=== PATIENT | female | born 1980 | race Caucasian/White ===

== ENCOUNTER 2019-08-30 09:36 | Outpatient (CLI) | payer MEDICAID, SELFPAY ==
--- NOTE | 2019-08-30 10:40 | CT_ITS ---
WS: [id number] CT FACIAL BONES TECHNIQUE: Noncontrast facial bones with coronal and sagittal reformatted images. CLINICAL INFORMATION: TO EVALUATE BROKEN NOSE-EMPHASIS ON LEFT SIDE COMPARISON: None. DLP: 670.[address] scans at [facility] use at least one of these dose optimization techniques: automat ed exposure control; mA and/or kV adjustment per patient size (includes targeted exams where dose is matched to clinical indication); or iterative reconstruction. FINDINGS: Left to right nasal septal deviation measuring 4.5 mm. Mucosal thickening with opacification of the o stiomeatal units. Air-fluid levels in the maxillary sinuses consistent with sinusitis. Partial opacif ication ethmoid air cells with fluid consistent with sinusitis.Frontal sinuses are well aerated. Part ial opacification right greater than left frontoethmoidal recess. Sphenoid sinus well aerated. Mild m ucosal thickening along the sphenoid sinus ostia. Mastoid air cells appear well aerated. Left orbital floor and lamina papyracea appear intact. Prominent cervical lymph nodes in the upper cervical chain likely reactive. CT/CT facial bones wo con* [id number] IMPRESSION: 1. Mild left to right nasal septal deviation measuring 4.5 mm. 2. Air-fluid levels in the maxillary sinuses left greater than right ethmoid a ir cells consistent with sinusitis. Inspissated secretions. 3. Partial opacification ethmoid air cells with fluid. 4. Frontal sinuses are well aerated. Partial opacification right frontoethmoid al recess. 5. Mild mucosal thickening in the sphenoid sinus with narrowing of the left gr eater than right sphenoid sinus ostia. 6. Narrowing of the ostiomeatal units bilaterally with mucosal thickening and partial opacification. 7. Prominent cervical lymph nodes in the upper cervical chains likely reactive .
== END 2019-08-30 09:37 | disposition home or self-care (01) ==
LOC: RAD 09:37
PROVIDERS: Family Provider Nurse Practitioner Family; PCP Nurse Practitioner Family; Visit Provider Internal Medicine
DX: S02.92XA Unspecified fracture of facial bones, initial encounter for closed fracture (principal); X58.XXXA Exposure to other specified factors, initial encounter; J34.2 Deviated nasal septum
CPT/HCPCS: 70486

== ENCOUNTER → 2019-09-20 08:58 | Outpatient (BNVA) | payer MEDICAID, SELFPAY | PROVIDERS: Family Provider Nurse Practitioner Family; PCP Nurse Practitioner Family; Visit Provider Orthopaedic Surgery | DX: M25.521 Pain in right elbow (principal); M25.511 Pain in right shoulder | CPT/HCPCS: 73030; 73080 ==

== ENCOUNTER 2019-11-14 12:00 | Outpatient (CLI) | payer MEDICAID, SELFPAY | END 2019-11-14 12:01 | disposition home or self-care (01) | LOC: SLEEP 11-16 09:39 | PROVIDERS: Family Provider Nurse Practitioner Family; PCP Nurse Practitioner Family; Visit Provider Specialist | DX: G47.33 Obstructive sleep apnea (adult) (pediatric) (principal) | CPT/HCPCS: G0399 ==

== ENCOUNTER → 2019-12-27 08:54 | Outpatient (BNVA) | payer MEDICAID, SELFPAY | PROVIDERS: Family Provider Nurse Practitioner Family; PCP Nurse Practitioner Family; Visit Provider Psychiatry & Neurology Psychiatry | DX: F43.10 Post-traumatic stress disorder, unspecified (principal); F90.2 Attention-deficit hyperactivity disorder, combined type; F10.94 Alcohol use, unspecified with alcohol-induced mood disorder; F39 Unspecified mood [affective] disorder; G47.00 Insomnia, unspecified; F10.982 Alcohol use, unspecified with alcohol-induced sleep disorder; F06.30 Mood disorder due to known physiological condition, unspecified; F06.34 Mood disorder due to known physiological condition with mixed features; F41.9 Anxiety disorder, unspecified; D52.1 Drug-induced folate deficiency anemia; E61.9 Deficiency of nutrient element, unspecified; S46.911A Strain of unspecified muscle, fascia and tendon at shoulder and upper arm level, right arm, initial encounter; F41.1 Generalized anxiety disorder; T42.75XA Adverse effect of unspecified antiepileptic and sedative-hypnotic drugs, initial encounter; F07.81 Postconcussional syndrome | CPT/HCPCS: 99205 ==

== ENCOUNTER 2019-12-28 14:30 | Outpatient (CLI) | payer MEDICAID, SELFPAY ==
[2019-12-28 14:58] LABS: Basophils % 0.3 %; Eosinophils # 0.2 10^3/uL (0.0-0.8); Hematocrit 43.7 % (37.0-47.0); Hemoglobin 14.6 g/dL (11.5-15.3); Lymphocytes # 2.9 10^3/uL (0.8-4.8); Lymphocytes % 24.5 %; Mean Corpuscular HGB Conc 33.4 g/dL (30.0-36.0); Mean Corpuscular Hemoglobin 33.2 pg (28.0-34.0); Mean Corpuscular Volume 99.3 fL (81-99); Mean Platelet Volume 10.7 fL (7.4-10.4); Neutrophils # 7.6 10^3/uL (1.8-7.7); Neutrophils % 64.7 %; Nucleated Red Blood Cells % 0 %; Platelet Count 275 10^3/cmm (130-400); Red Cell Distribution Width 12.8 % (12.1-15.1); White Blood Count 11.8 10^3/uL (4.0-10.0)
[2019-12-28 15:30] LABS: Alanine Aminotransferase 21 U/L (0-33); Albumin Level 4.3 g/dL (3.5-5.2); Alkaline Phosphatase 78 IU/L (35-105); Anion Gap 14.5 (5-19); Aspartate Amino Transferase 24 U/L (0-32); Blood Urea Nitrogen 21 mg/dL (6-20); Calcium 9.6 mg/dL (8.5-10.5); Carbon Dioxide 32 mmol/L (22-29); Chloride 95 mmol/L (98-107); Chol HDL Ratio 3.57 mg/dL (0.0-4.40); Cholesterol 193 mg/dL (0-200); Free T4 Free Thyroxine 1.16 ng/dL (0.82-1.77); Globulin 2.8 g/dL (1.3-4.6); Glucose 95 mg/dL (65-115); HDL Cholesterol 54 mg/dL (60-100); Magnesium 1.9 mg/dL (1.7-2.3); Osmolality Calculated 282 mOsm/kg (285-295); Potassium 3.5 mmol/L (3.5-5.1); Sodium 138 mmol/L (136-145); T3 Free 2.8 PG/ML (2.0-4.4); Thyroid Stimulating Hormone 1.13 uIU/mL (0.27-4.20); Total Bilirubin 0.3 mg/dL (0.15-1.2); Total Protein 7.1 g/dL (6.6-8.7); Triglycerides 413 mg/dL (0-150)
[2019-12-28 16:12] LABS: 25 Hydroxy Vitamin D 33 ng/mL (30-100); LDL Cholesterol Direct 111 mg/dL (0-100); Vitamin B12 288 pg/mL (232-1245)
[2019-12-28 16:22] LABS: HCG, Serum Qual Negative (Negative)
[2019-12-28 16:36] LABS: Folate Level 7.3 ng/mL (4.8-37.3)
[2019-12-29 08:16] LABS: T3 Total 92 ng/dL (76-181)
[2019-12-31 20:52] LABS: Copper Level 102 mcg/dL (70-175); Zinc Level, Serum or Plasma 65 mcg/dL (60-130)
== END 2019-12-28 14:31 | disposition home or self-care (01) ==
LOC: LAB 14:33
PROVIDERS: Family Provider Nurse Practitioner Family; PCP Nurse Practitioner Family; Visit Provider Psychiatry & Neurology Psychiatry
DX: F10.94 Alcohol use, unspecified with alcohol-induced mood disorder (principal); F39 Unspecified mood [affective] disorder; G47.00 Insomnia, unspecified; F10.982 Alcohol use, unspecified with alcohol-induced sleep disorder; F06.30 Mood disorder due to known physiological condition, unspecified; F06.34 Mood disorder due to known physiological condition with mixed features; F41.9 Anxiety disorder, unspecified; D52.1 Drug-induced folate deficiency anemia; E61.9 Deficiency of nutrient element, unspecified
CPT/HCPCS: 80053; 80061; 82306; 82525; 82607; 82746; 83721; 83735; 84439; 84443; 84480; 84481; 84630; 84703; 85025

== ENCOUNTER → 2020-01-23 07:56 | Outpatient (BNVA) | payer MEDICAID, SELFPAY | PROVIDERS: Family Provider Nurse Practitioner Family; PCP Nurse Practitioner Family; Visit Provider Psychiatry & Neurology Psychiatry | DX: F41.1 Generalized anxiety disorder (principal); F07.81 Postconcussional syndrome; F06.34 Mood disorder due to known physiological condition with mixed features; S46.911A Strain of unspecified muscle, fascia and tendon at shoulder and upper arm level, right arm, initial encounter | CPT/HCPCS: 99215 ==

== ENCOUNTER → 2020-03-23 10:05 | Outpatient (BNVA) | payer MEDICAID, SELFPAY | PROVIDERS: Family Provider Nurse Practitioner Family; PCP Nurse Practitioner Family; Visit Provider Nurse Practitioner Women's Health | DX: Z31.9 Encounter for procreative management, unspecified (principal); N93.9 Abnormal uterine and vaginal bleeding, unspecified | CPT/HCPCS: 84439; 84443; 84702; 85025 ==

== ENCOUNTER → 2020-03-30 16:10 | Outpatient (BNVA) | payer MEDICAID, SELFPAY | PROVIDERS: Family Provider Nurse Practitioner Family; PCP Nurse Practitioner Family; Visit Provider Nurse Practitioner Women's Health | DX: N93.9 Abnormal uterine and vaginal bleeding, unspecified (principal) | CPT/HCPCS: 76830 ==

== ENCOUNTER → 2020-04-04 11:08 | Outpatient (BNVA) | payer MEDICAID, SELFPAY | PROVIDERS: Family Provider Nurse Practitioner Family; PCP Nurse Practitioner Family; Visit Provider Nurse Practitioner Family | DX: J01.40 Acute pansinusitis, unspecified (principal); N39.0 Urinary tract infection, site not specified; B37.3 Candidiasis of vulva and vagina | CPT/HCPCS: 81000; 87086 ==

== ENCOUNTER → 2020-07-31 10:22 | Outpatient (BNVA) | payer MEDICAID, SELFPAY | PROVIDERS: Family Provider Nurse Practitioner Family; PCP Nurse Practitioner Family; Visit Provider Family Medicine Adult Medicine | DX: I10 Essential (primary) hypertension (principal); R94.4 Abnormal results of kidney function studies | CPT/HCPCS: 80053; 80061 ==

== ENCOUNTER → 2020-08-31 15:38 | Outpatient (BNVA) | payer BC, MEDICAID, SELFPAY | PROVIDERS: Family Provider Nurse Practitioner Family; PCP Nurse Practitioner Family; Visit Provider Nurse Practitioner Family | DX: Z20.828 Contact with and (suspected) exposure to other viral communicable diseases (principal) | CPT/HCPCS: 87635 ==

== ENCOUNTER → 2020-09-04 09:46 | Outpatient (BNVA) | payer BC, MEDICAID, SELFPAY | PROVIDERS: Family Provider Nurse Practitioner Family; PCP Nurse Practitioner Family; Visit Provider Nurse Practitioner Family | DX: Z20.828 Contact with and (suspected) exposure to other viral communicable diseases (principal); J06.9 Acute upper respiratory infection, unspecified | CPT/HCPCS: 87635 ==

== ENCOUNTER → 2020-09-13 10:00 | Outpatient (BNVA) | payer BC, SELFPAY | PROVIDERS: Family Provider Nurse Practitioner Family; PCP Nurse Practitioner Family; Visit Provider Nurse Practitioner Psychiatric/Mental Health | DX: F90.2 Attention-deficit hyperactivity disorder, combined type (principal); F43.12 Post-traumatic stress disorder, chronic; F31.9 Bipolar disorder, unspecified | CPT/HCPCS: 99214 ==

== ENCOUNTER → 2020-10-18 07:32 | Outpatient (BNVA) | payer BC, SELFPAY | PROVIDERS: Family Provider Nurse Practitioner Family; PCP Nurse Practitioner Family; Visit Provider Nurse Practitioner Psychiatric/Mental Health | DX: F90.2 Attention-deficit hyperactivity disorder, combined type (principal); F43.12 Post-traumatic stress disorder, chronic; F31.9 Bipolar disorder, unspecified | CPT/HCPCS: 99214 ==

== ENCOUNTER → 2021-01-30 07:58 | Outpatient (BNVA) | payer BC, MEDICAID, SELFPAY | PROVIDERS: Family Provider Nurse Practitioner Family; PCP Family Medicine Adult Medicine; Visit Provider Social Worker | DX: F43.12 Post-traumatic stress disorder, chronic (principal); F90.2 Attention-deficit hyperactivity disorder, combined type | CPT/HCPCS: 90834 ==

== ENCOUNTER → 2021-02-04 10:27 | Outpatient (BNVA) | payer BC, MEDICAID, SELFPAY | PROVIDERS: Family Provider Nurse Practitioner Family; PCP Family Medicine Adult Medicine; Visit Provider Family Medicine Adult Medicine | DX: Z00.00 Encounter for general adult medical examination without abnormal findings (principal); I10 Essential (primary) hypertension; M19.90 Unspecified osteoarthritis, unspecified site; M79.7 Fibromyalgia; S89.90XA Unspecified injury of unspecified lower leg, initial encounter | CPT/HCPCS: 80053; 83036; 84443; 85025; 86140; 86431 ==

== ENCOUNTER → 2021-02-14 16:30 | Outpatient (BNVA) | payer BC, SELFPAY | PROVIDERS: Family Provider Nurse Practitioner Family; PCP Family Medicine Adult Medicine; Visit Provider Nurse Practitioner Family | DX: Z20.822 Contact with and (suspected) exposure to COVID-19 (principal) | CPT/HCPCS: 87635 ==

== ENCOUNTER → 2021-02-14 16:30 | Outpatient (BNVA) | payer BC, SELFPAY | PROVIDERS: Family Provider Nurse Practitioner Family; PCP Family Medicine Adult Medicine; Visit Provider Nurse Practitioner Family | DX: Z01.89 Encounter for other specified special examinations (principal) | CPT/HCPCS: 87635 ==

== ENCOUNTER 2021-02-18 01:04 | Inpatient (IN) | payer BC, SELFPAY ==
[2021-02-18] VITALS (18 sets, daily range): BP systolic 83–124; BP diastolic 47–80; PULSE 85–124; RESP 16–24; TEMP 36.7–39.5; O2SAT 84–99; BMI 29.2
--- NOTE | 2021-02-18 02:08 | XRR_ITS ---
PROCEDURE INFORMATION: Exam: XR Chest Exam date and time: 02/18/2021 2:08 AM Age: 40 years old Clinical indication: Fever; Prior surgery; Surgery date: 6+ months; Surgery type: Appy, gb TECHNIQUE: Imaging protocol: XR of the chest. Views: 1 view. COMPARISON: CR XR shoulder RT min 2V* [id number] 09/20/2019 9:02 AM FINDINGS: Lungs: Unremarkable. No consolidation. Pleural spaces: Unremarkable. No pleural effusion. No pneumothorax. Heart/Mediastinum: Unremarkable. No cardiomegaly. Bones/joints: Unremarkable. XR/XR chest 1V portable [id number] IMPRESSION: No acute findings.
[2021-02-18] MEDS: ketorolac 30 mg/mL INJ 15 MG IVP (02:41)
[2021-02-18] MEDS: sodium chloride 0.9% 1,000 ML 999 ML IV ×2 (02:42→05:28)
[2021-02-18] MEDS: doxycycline 100 MG in sodium chloride 0.9% (plus) 100 ML IV (02:51)
[2021-02-18 03:04] LABS: Hematocrit 39.8 % (37.0-47.0); Hemoglobin 13.2 g/dL (11.5-15.3); Mean Corpuscular HGB Conc 33.2 g/dL (30.0-36.0); Mean Corpuscular Hemoglobin 33.8 pg (28.0-34.0); Mean Corpuscular Volume 101.8 fL (81-99); Platelet Count 64 10^3/cmm (130-400); Red Blood Count 3.91 10^6/uL (4.1-5.3); Red Cell Distribution Width 13.2 % (12.1-15.1); White Blood Count 3.1 10^3/uL (4.0-10.0)
--- NOTE | 2021-02-18 03:10 | CTR_ITS ---
PROCEDURE INFORMATION: Exam: CTA Chest With Contrast Exam date and time: 02/18/2021 3:10 AM Age: 40 years old Clinical indication: Dyspnea; Additional info: Cp SOB TECHNIQUE: Imaging protocol: Computed tomographic angiography of the chest with contrast. 3D rendering (Not supervised by radiologist): MIP and/or 3D reconstructed images were created by the technologist. Radiation optimization: All CT scans at this facility use at least one of these dose optimization techniques: automated exposure control; mA and/or kV adjustment per patient size (includes targeted exams where dose is matched to clinical indication); or iterative reconstruction. Contrast material: OMNI 350; Contrast volume: 95 ml; Contrast route: INTRAVENOUS (IV); COMPARISON: CR (CHEST, ) 02/18/2021 2:47 AM RADIATION DOSE METRICS: Total DLP (mGy-cm): 620.24 FINDINGS: Pulmonary arteries: Normal. No pulmonary emboli. Aorta: Unremarkable. No aortic aneurysm. No aortic dissection. Lungs: There is ground-glass opacities scattered throughout both lungs in a predominantly peripheral distribution. Pleural spaces: Unremarkable. No pneumothorax. No pleural effusion. Heart: Unremarkable. No cardiomegaly. No pericardial effusion. Mediastinal space: A small hiatal hernia is present. Lymph nodes: Unremarkable. No enlarged lymph nodes. Liver: The liver is diffusely decreased in density, compatible with hepatic steatosis. No mass lesion seen. Bones/joints: Unremarkable. No acute fracture. Soft tissues: Unremarkable. CT/CT angio chest PE protcl [id number] IMPRESSION: Commonly reported imaging features of (COVID-19) pneumonia are present. Other processes such as influenza pneumonia and organizing pneumonia, as can be seen with drug toxicity and connective tissue disease, can cause a similar imaging pattern. Radiation Dose CTDIVOL = (mGy): DLP = 620.24 (mGy-cm)
[2021-02-18 03:26] LABS: Lactate (Lactic Acid level) 3.1 mmol/L (0.5-2.2)
[2021-02-18 03:27] LABS: Alanine Aminotransferase 75 U/L (0-33); Albumin Level 3.3 g/dL (3.5-5.2); Alkaline Phosphatase 146 IU/L (35-105); Anion Gap 14.4 (5-19); Aspartate Amino Transferase 151 U/L (0-32); Blood Urea Nitrogen 15 mg/dL (6-20); C Reactive Protein 82.6 mg/L (0.0-4.9); Calcium 7.9 mg/dL (8.5-10.5); Carbon Dioxide 28 mmol/L (22-29); Chloride 93 mmol/L (98-107); Creatine Phosphokinase 128 U/L (26-192); Globulin 2.2 g/dL (1.3-4.6); Glomerular Filtration Rate 79.4 mL/min (90-130); Glucose 98 mg/dL (65-115); Osmolality Calculated 275 mOsm/kg (285-295); Potassium 3.4 mmol/L (3.5-5.1); Sodium 132 mmol/L (136-145); Total Bilirubin 0.6 mg/dL (0.15-1.2); Total Protein 5.5 g/dL (6.6-8.7)
[2021-02-18 03:33] LABS: Procalcitonin 0.54 ng/mL (0-0.5)
[2021-02-18 03:54] LABS: Add Urine Microscopic? YES; Bilirubin Urine 1+ (Negative); Blood Urine 3+ (Negative); Glucose Urine UA Norm (Normal); Ketones Urine Negative (Negative); Leukocyte Esterase Urine Negative (Negative); Nitrate Urine Negative (Negative); Protein Urine Trace (Negative); Urine Appearance Clear (CLEAR); Urine Color Yellow (Yellow); Urobilinogen Urine 4 mg/dL (Negative); pH Urine 5 (5-7)
[2021-02-18 03:55] LABS: Add Urine Culture? No; Bacteria Urine TRACE /hpf; Mucus Urine 2+ /hpf; WBC Urine 0-4 /hpf (0-5)
[2021-02-18] MEDS: acetaminophen 500 mg Tablet 1000 MG PO (03:57)
[2021-02-18 04:01] LABS: Slide Review Slide Review Perform
[2021-02-18 04:09] LABS: Absolute Segmented Neutrophil 1.6 10/cmm (1.6-7.1); Eosinophils 0 %; Lymphocytes 11 %; Lymphocytes Absolute 0.3 10^3/cmm (1.2-3.4); Monocytes Absolute 0.1 10^3/cmm (0.1-0.6); Segmented Neutrophils 52 %; Total Cells Counted 100 (0-100)
[2021-02-18 04:10] LABS: Absolute Neutrophil 2.6 10^3/cmm (1.4-6.5); Giant Platelets Trace; Platelet Estimate Decreased (Normal)
[2021-02-18 04:11] LABS: Polychromasia 1+
[2021-02-18] MEDS: iohexol 350 mg/mL 100 mL Btl IV (04:20)
[2021-02-18 05:54] LABS: SARS Covid-2 Antigen Negative (Negative)
[2021-02-18 05:54] LABS: Influenza A by IFA Negative (Negative); Influenza B by IFA Negative (Negative)
--- NOTE | 2021-02-18 06:02 | PM.HP ---
Providers/Chief Complaint Primary Care Provider: Du Coffey MD Chief Complaint: High Fever History of Present Illness Ana Maria Archer is a 40 year old female who presented today with chief complaint of fever, cough, joint pain and headaches. 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 She has removed 4-5 ticks in last 1 week her symptoms started on . She also noticed a bull's-eye rash on right flank. At home she was spiking temperature 103-104F, she was seen at [facility] ER where she was given Levaquin for possible bronchitis and was discharged home. At home her cough got better but she was still spiking high-grade temperature. Her fever is associated with headache, macular rash on her back, and joint pains. She is denying excessive coughing, productive cough, diarrhea, dysuria. Diagnostics in the ER revealed leukopenia, thrombocytopenia, abnormal transaminases, high lactic acid, patient is septic, Covid antigen negative, tick panel sent, UA unremarkable, high procalcitonin level, high CRP, CTA rule out PE however consistent with groundglass opacities she was given ketorolac 50 mg IV push along 2 L normal saline and doxycycline and 1 g of Tylenol Review of Systems Const: Reports: fever(s), chills, body aches, change in appetite, fatigue and malaise Eyes: Denies: change in vision ENMT: Denies: throat pain Card: Denies: chest pain Resp: Reports: dyspnea and non-productive cough GI: Denies: abdominal pain : Denies: flank pain Musc: Reports: joint pain Skin/Breast: Reports: erythema and new lesions Neuro: Reports: headache(s) Psych: Reports: anxiety Endo: Denies: polyuria Max/Lymph: Reports: easy bruising All/Imm: Denies: urticaria Medications/Allergies Home Medications Medication Instructions Recorded Confirmed Last Taken Type gabapentin 100 mg capsule 200 mg PO TID #90 cap 01/23/20 02/14/21 Unknown Rx clonidine HCl 0.1 mg tablet 0.1 mg PO BID PRN #60 tab 10/18/20 02/14/21 Unknown Rx sertraline 50 mg tablet 50 mg PO DAILY #30 tab 12/07/20 02/14/21 Unknown Rx meloxicam 7.5 mg tablet 7.5 mg PO BIDWMEAL #60 tab 02/04/21 02/14/21 Unknown Rx Allergies Allergy/AdvReac Type Severity Reaction Status Date / Time No Known Allergies Allergy Verified 02/18/21 01:40 PFSH Acute PFSH: Medical History Abnormal uterine bleeding (AUB) Acquired scoliosis Allergic rhinitis due to allergen Arthritis Bipolar affect, depressed Bipolar mood disorder Chronic post-traumatic stress disorder (PTSD) Decreased calculated GFR Fibromyalgia affecting multiple sites Hypertension Insomnia No pertinent past medical history neghx: htn,dm,thyroid,dvt/pe Toe fracture, left Wellness examination Surgical History H/O section H/O laparoscopy x4 for endometriosis-- last 12/2018 no endometriosis was noted; [facility] in [place] H/O LEEP (~2002) severe dysplasia History of appendectomy History of cholecystectomy History of cryosurgery on the cervix due to abnormal paps History of thoracic surgery chest tumor-- benign Family History Grandmother Family history of thyroid problem Maternal grandmother Hypertension Paternal grandmother Maternal grandmother Grandfather Hypertension Paternal grandfather Maternal grandfather Father Hypertension Hyperlipidemia Mother Hypertension Hyperlipidemia Denies family history of Colon cancer Ovarian cancer Diabetes Heart disease Breast cancer Uterine cancer Stroke Social History Additional social history: - Tobacco use: Everyday smoker; 6cigs daily Alcohol use: Social Drug use: Denies Female Reproductive History: Date of last menstrual period: 02/14/21 Vitals/I&O/Wt Last Vital Signs Temp 100.1 F H 02/18/21 05:22 Pulse 109 H 02/18/21 05:59 Resp 22 H 02/18/21 05:59 BP 112/63 02/18/21 05:59 Pulse Ox 96 02/18/21 05:59 02/17/21 02/17/21 02/18/21 14:59 22:59 06:59 Intake Total 1100 / 1100 Balance 1100 / 1100 Weight last 48 hrs Weight 72.484 kg Physical Exam Narrative: EXAM NARRATIVE: Young female No acute respiratory distress or chest pain Sunburned skin S1, S2 sinus tachycardia Clinically looks dehydrated with facial flushing Macular rash noted at her back with erythema migrans around right flank No signs of meningitis Soft abdomen no signs of peritonitis Lower extremity no edema No neurological deficits GCS 15 awake alert oriented x3 Data : 02/18/21 02:40 02/18/21 02:40 Micro: Microbiology 02/18/21 02:30 Blood Culture - Preliminary Blood SPECIMEN COLLECTED 02/18/21 02:40 Blood Culture - Preliminary Blood SPECIMEN COLLECTED A&P Assessment and plan (1) Tick fever: Status: Acute (2) Sepsis: Status: Acute Additional A&P Information Sepsis Suspicion for erythema migrans around right flank area, multiple ticks were removed in last 1 week, 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 twice daily along ceftriaxone 2 g, most likely she will need 3 weeks regimen of doxycycline Patient does look dehydrated has high lactic acid, anticipating provement with fluids resuscitation received 2 L normal saline bolus, she was hypotensive on arrival as well, no signs of meningitis, CTA rule out PE, chest imaging consistent with bronchitis Tick panel sent Her abnormal transaminases inflammatory markers are most likely related to tick fever Cardiac diet DVT prophylaxis SCDs avoid anticoagulating agent Full code Attestations Medical Necessity Statement*: Anticipating stay in the hospital because more than 2 midnights for sepsis, tick fever Time Spent in Patient Care: 30mins Coding Level of Care Code 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
[2021-02-18] MEDS: sodium chloride 0.9% 1,000 ML 75 ML IV (08:15)
[2021-02-18] MEDS: doxycycline 100 mg Tablet PO ×2 (08:18→17:10)
[2021-02-18] MEDS: sertraline 50 mg Tablet PO (08:18)
[2021-02-18] MEDS: cefTRIAXone 2,000 MG in sodium chloride 0.9% (plus) 50 ML 100 MG IV (08:19)
[2021-02-18] MEDS: famotidine 20 mg/2 mL INJ IVP ×2 (08:19→22:41)
[2021-02-18 08:50] LABS: D Dimer 7.31 ug/mIFEU (0-0.59)
--- NOTE | 2021-02-18 08:55 | ED_ITS ---
HPI - Fever General: Chief Complaint: Fever Stated Complaint: High Fever Time Seen by Provider: 02/18/21 01:53 History of Present Illness: HPI Narrative: 40-year-old female with several days of fever. She states she has been seen twice. She has been tested for COVID-19 twice she has had the vaccine, the last one in December. She developed fever a few days ago that was significant. She was seen and tested, she tested negative and was allowed home. She was seen in [facility] in the ER, tested negative again, told she had a negative chest x-ray, and sent home on antibiotics for bronchitis. Despite this, her temperature continues to be quite high. This evening she had a temperature of 105 at home. 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 At one point she states that her cough was significant, but it is decreased now, nearly resolved. elicited complaint: fever and malaise Onset (ago): day(s) Measured temperature: 105 F Context: recent antibiotic use Exacerbating factors: exertion Relieving factors: nothing Associated symptoms: Reports chills, chest pain, cough, headache(s), nasal congestion (resolved), nausea and sore throat; Deny abdominal pain, diarrhea or short of breath Review of Systems Const: Reports: fever(s), chills, body aches and fatigue Eyes: Denies: change in vision ENMT: Reports: nasal congestion (resolved) Card: Reports: chest pain Resp: Reports: non-productive cough; Denies: dyspnea or productive cough GI: Reports: nausea; Denies: abdominal pain or diarrhea Neuro: Reports: headache(s) PFS ED PFSH: Medical History Abnormal uterine bleeding (AUB) Acquired scoliosis Allergic rhinitis due to allergen Arthritis Bipolar affect, depressed Bipolar mood disorder Chronic post-traumatic stress disorder (PTSD) Decreased calculated GFR Fibromyalgia affecting multiple sites Hypertension Insomnia No pertinent past medical history neghx: htn,dm,thyroid,dvt/pe Toe fracture, left Wellness examination Surgical History H/O section H/O laparoscopy x4 for endometriosis-- last 12/2018 no endometriosis was noted; [facility] in [place] H/O LEEP (~2002) severe dysplasia History of appendectomy History of cholecystectomy History of cryosurgery on the cervix due to abnormal paps History of thoracic surgery chest tumor-- benign Family History Grandmother Family history of thyroid problem Maternal grandmother Hypertension Paternal grandmother Maternal grandmother Grandfather Hypertension Paternal grandfather Maternal grandfather Father Hypertension Hyperlipidemia Mother Hypertension Hyperlipidemia Denies family history of Colon cancer Ovarian cancer Diabetes Heart disease Breast cancer Uterine cancer Stroke Social History Additional social history: - Tobacco use: Everyday smoker; 6cigs daily Alcohol use: Social Drug use: Denies Female Reproductive History: Date of last menstrual period: 02/14/21 Physical Exam Const: GENERAL APPEARANCE: well developed ORIENTATION/CONSCIOUSNESS: Yes oriented to person, Yes oriented to place and Yes oriented to time HENMT: COMMON NORMALS: normocephalic, external ears normal and Normal external nose present HEAD & SCALP: normocephalic; no scalp tenderness FACE & SINUS: normal facial exam NOSE: Normal external nose present and No nasal discharge present EXTERNAL EAR: Yes external ears normal MOUTH: tongue normal TEETH & GINGIVA: no abnormal tooth and associated gingiva THROAT: posterior oropharynx normal; no peritonsillar mass Eye: COMMON NORMALS: Equal, round and reactive pupils present, EOMs intact bilaterally and conjunctivae normal EYELID: eyelids normal CONJUNCTIVA: Yes conjunctivae normal PUPIL: Yes Equal, round and reactive pupils present Neck/C-Spine: COMMON NORMALS: full ROM GENERAL: No tracheal deviation CERVICAL SPINE: Yes normal cervical lordosis and No Cervical spine tenderness Chest: COMMONS NORMALS: normal inspection of the chest CHEST: No tenderness Resp: COMMON NORMALS: clear to auscultation bilaterally EFFORT & INS PECTION: No tachypneic, No respiratory distress, No retractions, No uses accessory muscles and No tracheal deviation AUSCULTATION: clear to auscultation bilaterally, no rhonchi, no wheezes and lung sounds not diminished Cardio: COMMON NORMALS: regular rate and regular rhythm RATE: regular rate RHYTHM: regular rhythm HEART SOUNDS: no murmurs PERIPHERAL PULSES: radial pulses present GI: INSPECTION: No abdominal distension AUSCULTATION: No Hyperactive bowel sounds present and No Hypoactive bowel sounds present PALPATION: No Guarding due to palpation present (GI) and No Rigid due to palpation PERCUSSION: no dullness to percussion and no tympanic to percussion : COMMON NORMALS: Yes no CVA tenderness BLADDER/KIDNEY EXAM: Yes no CVA tenderness Back/Pelvis: COMMON NORMALS: no CVA tenderness Neuro: SENSORIUM/ORIENTATION: Yes oriented to person, Yes oriented to place and Yes oriented to time Psych: COMMON NORMALS: mental status grossly normal Skin: COMMON NORMALS: no rashes or lesions noted GENERAL SKIN EXAM: no rashes or lesions noted Course Vital Signs: Vital signs: Vital Signs Temperature 99.4 F 02/18/21 08:00 Pulse Rate 112 H 02/18/21 08:00 Respiratory Rate 18 02/18/21 08:00 Blood Pressure 83/47 02/18/21 08:00 Pulse Oximetry 92 02/18/21 08:00 MDM - Fever MDM Narrative: Medical decision making narrative: 40-year-old female with significant fever. Her oxygen saturations on room air have been marginal, 90%. She is significantly tachycardic, and a bit hypotensive. She is white blood cell count of 3.1, she is thrombocytopenic with a platelet count of 64. He was 221 last week. Potassium is mildly low. Inflammatory markers are up. Chest x- ray was negative, however because of hypoxia and tachycardia CTA was performed. It shows bilateral pneumonitis suggestive of viral infection like COVID-19 or influenza, but these rapid antigen tests are again negative. Blood cultures are pending. I suspect take fever. She has been given IV doxycycline in the ER. She will be admitted. Lab Data: Labs: Lab Results 02/18/21 02/18/21 02/18/21 Range/Units 02:40 02:40 02:40 WBC 3.1 L (4.0-10.0) 10^3/ uL RBC 3.91 L (4.1-5.3) 10^6/u L Hgb 13.2 (11.5-15.3) g/dL Hct 39.8 (37.0-47.0) % MCV 101.8 H (81-99) fL MCH 33.8 (28.0-34.0) pg MCHC 33.2 (30.0-36.0) g/dL RDW 13.2 (12.1-15.1) % Plt Count 64 L (130-400) 10^3/c mm MPV 12.0 H (7.4-10.4) fL Lymph % (Auto) Not Reportable Baca % (Auto) Not Reportable Lymph # (Auto) Not Reportable Baca # (Auto) Not Reportable Total Counted 100 (0-100) Atypical Lymphs % 0.0 (0-5) % Absolute Neutrophi ls 2.6 (1.4-6.5) 10^3/c mm Segmented Neutroph ils 52 % Abs Segm Neuts (Ma n) 1.6 (1.6-7.1) 10/cmm Band Neutrophils 32.0 % Abs Band Neuts (Ma n) 1.0 (0.0-1.2) 10^3/c mm Absolute Lymphocyt es 0.3 L (1.2-3.4) 10^3/c mm Lymphocytes (Manua l) 11 % Monocytes (Manual) 2.0 % Absolute Monocytes 0.1 (0.1-0.6) 10^3/c mm Eosinophils (Manua l) 0 % Absolute Eosinophi ls 0.0 (0.0-0.7) 10^3/c mm Basophils (Manual) 0.0 % Absolute Basophils 0.0 (0.0-0.2) 10^3/c mm Metamyelocytes 3.0 % Platelet Estimate Decreased L (Normal) Giant Platelets Trace Polychromasia 1+ H Sodium 132 L (136-145) mmol/L Potassium 3.4 L (3.5-5.1) mmol/L Chloride 93 L (98-107) mmol/L Carbon Dioxide 28 (22-29) mmol/L Anion Gap 14.4 (5-19) BUN 15 (6-20) mg/dL Creatinine 0.8 (0.5-0.9) mg/dL GFR Calculation 79.4 L (90-130) mL/min Glucose 98 (65-115) mg/dL Calculated Osmolal ity 275 L (285-295) mOsm/k g Lactate 3.1 H (0.5-2.2) mmol/L Calcium 7.9 L (8.5-10.5) mg/dL Total Bilirubin 0.6 (0.15-1.2) mg/dL AST 151 H (0-32) U/L ALT 75 H (0-33) U/L Alkaline Phosphata se 146 H (35-105) IU/L Creatine Kinase 128 (26-192) U/L C-Reactive Protein 82.6 H (0.0-4.9) mg/L Total Protein 5.5 L (6.6-8.7) g/dL Albumin 3.3 L (3.5-5.2) g/dL Globulin 2.2 (1.3-4.6) g/dL Procalcitonin 0.54 H (0-0.5) ng/mL Urine Color (Yellow) Urine Appearance (CLEAR) Urine pH (5-7) Ur Specific Gravit y (1.005-1.030) Urine Protein (Negative) Urine Glucose (UA) (Normal) Urine Ketones (Negative) Urine Blood (Negative) Urine Nitrate (Negative) Urine Bilirubin (Negative) Urine Urobilinogen (Negative) mg/dL Ur Leukocyte Paula ase (Negative) Urine RBC (0-2) /hpf Urine WBC (0-5) /hpf Ur Squamous Epith Cells (0-5) /hpf Amorphous Sediment Urine Bacteria (NONE) /hpf Urine Mucus /hpf Influenza Type A A g (Negative) Influenza Type B A g (Negative) SARS-CoV-2 Ag (Rap id) (Negative) 02/18/21 02/18/21 02/18/21 Range/Units 03:23 05:24 05:25 WBC (4.0-10.0) 10^3/ uL RBC (4.1-5.3) 10^6/u L Hgb (11.5-15.3) g/dL Hct (37.0-47.0) % MCV (81-99) fL MCH (28.0-34.0) pg MCHC (30.0-36.0) g/dL RDW (12.1-15.1) % Plt Count (130-400) 10^3/c mm MPV (7.4-10.4) fL Lymph % (Auto) Baca % (Auto) Lymph # (Auto) Baca # (Auto) Total Counted (0-100) Atypical Lymphs % (0-5) % Absolute Neutrophi ls (1.4-6.5) 10^3/c mm Segmented Neutroph ils % Abs Segm Neuts (Ma n) (1.6-7.1) 10/cmm Band Neutrophils % Abs Band Neuts (Ma n) (0.0-1.2) 10^3/c mm Absolute Lymphocyt es (1.2-3.4) 10^3/c mm Lymphocytes (Manua l) % Monocytes (Manual) % Absolute Monocytes (0.1-0.6) 10^3/c mm Eosinophils (Manua l) % Absolute Eosinophi ls (0.0-0.7) 10^3/c mm Basophils (Manual) % Absolute Basophils (0.0-0.2) 10^3/c mm Metamyelocytes % Platelet Estimate (Normal) Giant Platelets Polychromasia Sodium (136-145) mmol/L Potassium (3.5-5.1) mmol/L Chloride (98-107) mmol/L Carbon Dioxide (22-29) mmol/L Anion Gap (5-19) BUN (6-20) mg/dL Creatinine (0.5-0.9) mg/dL GFR Calculation (90-130) mL/min Glucose (65-115) mg/dL Calculated Osmolal ity (285-295) mOsm/k g Lactate (0.5-2.2) mmol/L Calcium (8.5-10.5) mg/dL Total Bilirubin (0.15-1.2) mg/dL AST (0-32) U/L ALT (0-33) U/L Alkaline Phosphata se (35-105) IU/L Creatine Kinase (26-192) U/L C-Reactive Protein (0.0-4.9) mg/L Total Protein (6.6-8.7) g/dL Albumin (3.5-5.2) g/dL Globulin (1.3-4.6) g/dL Procalcitonin (0-0.5) ng/mL Urine Color Yellow (Yellow) Urine Appearance Clear (CLEAR) Urine pH 5 (5-7) Ur Specific Gravit y 1.010 (1.005-1.030) Urine Protein Trace (Negative) Urine Glucose (UA) Norm (Normal) Urine Ketones Negative (Negative) Urine Blood 3+ H (Negative) Urine Nitrate Negative (Negative) Urine Bilirubin 1+ H (Negative) Urine Urobilinogen 4 H (Negative) mg/dL Ur Leukocyte Paula ase Negative (Negative) Urine RBC 5-10 H (0-2) /hpf Urine WBC 0-4 H (0-5) /hpf Ur Squamous Epith Cells 10-15 H (0-5) /hpf Amorphous Sediment Not Reportable Urine Bacteria Trace (NONE) /hpf Urine Mucus 2+ /hpf Influenza Type A A g Negative (Negative) Influenza Type B A g Negative (Negative) SARS-CoV-2 Ag (Rap id) Negative (Negative) Discharge Plan Discharge Patient Disposition: Admitted As Inpatient Admit Provider: Dony Sears Clinical Impression: Sepsis Qualifiers: Sepsis type: sepsis due to unspecified organism Sepsis acute organ dysfunction status: with acute organ dysfunction Acute respiratory failure type: with hypoxia Severe sepsis shock status: without septic shock Condition: Stable Coding Level of Care Code 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
[2021-02-18 08:56] LABS: Iron 15 ug/dL (37-145); NT Pro B Type Natriuretic Pept 1485 pg/mL (0-125); Percent Saturation 8.7 % (20-50); Total Iron Binding Capacity 172 mcg/dl; Unsaturated Iron Binding 157 ug/dL (112-347)
[2021-02-18] MEDS: albuterol 8 gm MDI 2 PUFF INHALATION ×3 (10:24→19:53)
--- NOTE | 2021-02-18 13:05 | PC.CHAP ---
Pastoral Care Encounter/Spiritual Assessment Type of Contact [] Declined planer stone visit [] Patient/Family/Request visit [] Outpatient visit [] Follow-up visit [] Physician referral [] Code/Alert [] Routine visit [] Staff referral [] Actively dying [] Patient sleeping [] Family support [] [] Out of room [] Palliative care [] [] Receiving care in room [] Pre-surgical visit [] Trauma [] Long length of stay [] ICU visit [] Other: Relational/Emotional Strength [] Patient feels connected with others/family/visitors/staff [] Distress [] Loneliness/isolation [] Abandonment Spirituality of Patient [x] Person of Renuka [] Attends Mandaeism of their Renuka [] Believes in Prayer [] Reads Bible or Evangelical materials [] There are Spiritual issues to be addressed 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 Interventions [x] Prayer [] Active listening [] Non-anxious presence [] Spiritual/emotional support [] Crisis/trauma care [] Spiritual counseling [] Bereavement support [] Provided bereavement packet [] Provided Bible/devotional materials [] Provided toy/stuffed animal, coloring book to patient or family member [] Provided Communion [] Anointing/Forest [] Salvation [] Completed spiritual assessment [] Other: Impact on Illness or Injury [] Angry [] Fearful [] Anxious [] Often cries [] Exhaustion [] Unable to work [] Unable to attend bahai [] Unable to walk/stand [] Unable to read [] Unable to drive [] Unable to eat/drink [] Unable to sleep [] Unable to be with family [] Patient intubated [] Other: Summary Time spent with patient
[2021-02-18] MEDS: acetaminophen 500 mg Tablet PO (14:03)
--- NOTE | 2021-02-18 15:15 | PM.PN ---
Vitals/I&O/Wt Last Vital Signs Temp 98.9 F 02/18/21 12:00 Pulse 106 H 02/18/21 13:20 Resp 16 02/18/21 13:15 BP 97/64 02/18/21 12:00 Pulse Ox 98 02/18/21 13:15 02/18/21 02/18/21 02/18/21 06:59 14:59 22:59 Intake Total 1100 / 1100 1290 / 1290 Balance 1100 / 1100 1290 / 1290 Weight last 48 hrs Weight 72.484 kg Data : 02/18/21 02:40 02/18/21 02:40 Micro: Microbiology 02/18/21 03:23 Legionella Urinary Antigen - Final Urethra 02/18/21 02:30 Blood Culture - Preliminary Blood SPECIMEN COLLECTED 02/18/21 02:40 Blood Culture - Preliminary Blood SPECIMEN COLLECTED A&P Assessment and plan (1) Tick fever: Status: Acute (2) Sepsis: Status: Acute Qualifiers: Acute respiratory failure type: with hypoxia Sepsis acute organ dysfunction status: with acute organ dysfunction Sepsis type: sepsis due to unspecified organism Severe sepsis shock status: without septic shock Additional A&P Information Sepsis Suspicion for erythema migrans around right flank area, multiple ticks were removed in last 1 week, 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
[2021-02-18] MEDS: iron sucrose 200 MG in sodium chloride 0.9% (100 ml) 100 ML 220 MG IV (16:21)
[2021-02-18] MEDS: vancomycin 1,250 MG/250 ML PIGGYBACK 250 MG IV (16:24)
[2021-02-18 16:51] LABS: Lactic Sepsis W/Reflex 2.6 mmol/L (0.5-2.2)
[2021-02-18] MEDS: ascorbic acid 500 mg Tablet 1000 MG PO (17:11)
[2021-02-18 18:16] LABS: Reflex Lactate Order REFLEX LACTIC ORDERD
[2021-02-18 21:17] LABS: Lactic Acid level (Lactate) 3.1 mmol/L (0.5-2.2)
[2021-02-19] VITALS (10 sets, daily range): BP systolic 93–112; BP diastolic 63–80; PULSE 71–95; RESP 13–18; TEMP 36.7–37.1; O2SAT 91–98
[2021-02-19] MEDS: sodium chloride 0.9% 1,000 ML 75 ML IV ×2 (02:00→16:02)
[2021-02-19] MEDS: vancomycin 1,250 MG/250 ML PIGGYBACK 250 MG IV (03:06)
--- NOTE | 2021-02-19 06:09 | PC.NURSE ---
Patient states it is ok to give updated inforomation about her to her mother Sandra Rendon.
[2021-02-19 07:01] LABS: Hematocrit 38.1 % (37.0-47.0); Hemoglobin 12.7 g/dL (11.5-15.3); Mean Corpuscular HGB Conc 33.3 g/dL (30.0-36.0); Mean Corpuscular Hemoglobin 33.7 pg (28.0-34.0); Mean Corpuscular Volume 101.1 fL (81-99); Platelet Count 44 10^3/cmm (130-400); Red Blood Count 3.77 10^6/uL (4.1-5.3); Red Cell Distribution Width 13.5 % (12.1-15.1)
[2021-02-19 07:11] LABS: Fibrinogen 173 mg/dL (174-498)
[2021-02-19 07:16] LABS: Alanine Aminotransferase 197 U/L (0-33); Albumin Level 2.7 g/dL (3.5-5.2); Alkaline Phosphatase 248 IU/L (35-105); Anion Gap 13.3 (5-19); Aspartate Amino Transferase 361 U/L (0-32); Blood Urea Nitrogen 17 mg/dL (6-20); C Reactive Protein 123.8 mg/L (0.0-4.9); Calcium 7.6 mg/dL (8.5-10.5); Carbon Dioxide 21 mmol/L (22-29); Chloride 106 mmol/L (98-107); Creatine Phosphokinase 112 U/L (26-192); Globulin 2.1 g/dL (1.3-4.6); Glomerular Filtration Rate 110.7 mL/min (90-130); Glucose 127 mg/dL (65-115); Osmolality Calculated 287 mOsm/kg (285-295); Potassium 3.3 mmol/L (3.5-5.1); Sodium 137 mmol/L (136-145); Total Bilirubin 0.8 mg/dL (0.15-1.2); Total Protein 4.8 g/dL (6.6-8.7)
[2021-02-19 07:22] LABS: Lactate Dehydrogenase 681 U/L (135-214)
[2021-02-19 07:23] LABS: Estmated Average Glucose 103; Hemoglobin A1C 5.2 % (4.0-6.0)
--- NOTE | 2021-02-19 08:00 | FL_ITS ---
WS: [id number] LUMBAR PUNCTURE CLINICAL INFORMATION: meningitis COMPARISON: None. TECHNIQUE: Informed consent: The procedure and its potential risk and complications were discussed with the melvina ent. Verbal and written consent was obtained. Timeout: A timeout was performed to confirm correct patient, procedure, and site. Patient was prepped and draped in the usual sterile fashion. Lidocaine 1% was used for local anesthes ia. Utilizing fluoroscopic guidance, a 3.5 inch 22-gauge spinal needle was advanced into the subarach noid space at L4-5 via left oblique sublaminar approach. Free flow of clear CSF was obtained. 8 cc of CSF was collected and sent the lab for further analysis. FLUOROSCOPIC TIME: 0.3 minutes. FL/FL guided lumbarpunc dx* [id number] IMPRESSION: Fluoroscopically guided lumbar puncture. No immediate complications
[2021-02-19 08:20] LABS: Absolute Segmented Neutrophil 1.6 10/cmm (1.6-7.1); Segmented Neutrophils 27 %; Slide Review Slide Review Perform; Total Cells Counted 100 (0-100)
[2021-02-19 08:21] LABS: Band Neutrophils Absolute 0.4 10^3/cmm (0.0-1.2); Eosinophils 0 %; Lymphocytes 57 %; Lymphocytes Absolute 3.8 10^3/cmm (1.2-3.4); Monocytes Absolute 0.1 10^3/cmm (0.1-0.6)
[2021-02-19 08:27] LABS: Platelet Estimate Decreased (Normal)
[2021-02-19 08:30] LABS: Ferritin 10906 ng/mL (15-150)
[2021-02-19] MEDS: ascorbic acid 500 mg Tablet 1000 MG PO ×2 (08:35→17:24)
[2021-02-19] MEDS: zinc gluconate 50 mg Tablet PO (08:36)
[2021-02-19] MEDS: doxycycline 100 mg Tablet PO ×2 (08:36→17:24)
[2021-02-19] MEDS: famotidine 20 mg/2 mL INJ IVP ×2 (08:36→20:45)
[2021-02-19] MEDS: sertraline 50 mg Tablet PO (08:36)
[2021-02-19] MEDS: predniSONE 20 mg Tablet 60 MG PO (08:36)
[2021-02-19] MEDS: albuterol 8 gm MDI 2 PUFF INHALATION ×2 (08:43→21:35)
[2021-02-19] MEDS: acetaminophen 500 mg Tablet PO (10:18)
[2021-02-19] MEDS: cefTRIAXone 1,000 MG in sodium chloride 0.9% (plus) 50 ML 100 MG IV (10:18)
--- NOTE | 2021-02-19 11:36 | US_ITS ---
WS: [id number] ULTRASOUND ABDOMEN LIMITED CLINICAL INFORMATION: abnormal transaminase COMPARISON: None. FINDINGS: Liver Size: Normal. Craniocaudal length: 15.0 cm. Echogenicity: Normal. Surface nodularity: None. Mass (size and location): None. Bile ducts Intrahepatic ducts: Normal. Common bile duct diameter: 0.3 cm. Gallbladder Normal. Gallstones: None. Gallbladder sludge: None. Gallbladder wall thickening: None. Pericholecystic fluid: None. Sonographic Christian sign: Absent. Pancreas Normal as visualized. Right kidney: Normal. Hydronephrosis: None. Size: 11.0 cm x 4.8 cm x 4.3 cm. Abdominal aorta and IVC Visualized portions are normal. Ascites: None. US/US liver [id number] IMPRESSION: Normal abdominal ultrasound
[2021-02-19 11:46] LABS: Lyme AB Screen <0.90 index
[2021-02-19 12:00] LABS: Red Blood Cell CSF 0 10^3/uL (0-0); White Blood Cell CSF 5 /uL (0-5)
[2021-02-19 12:03] LABS: Appearance CSF CLEAR (CLEAR); Color CSF COLORLESS (COLORLESS)
[2021-02-19 12:27] LABS: Glucose CSF 89 mg/dL (40-70); Total Protein CSF 21 mg/dL (15-45)
[2021-02-19] MEDS: iron sucrose 200 MG in sodium chloride 0.9% (100 ml) 100 ML 220 MG IV (16:02)
[2021-02-19] MEDS: benzonatate 100 mg Capsule PO (16:02)
--- NOTE | 2021-02-19 16:03 | P.PN_ITS ---
Subjective Subjective: Interval history: No acute event overnight. Patient has remained afebrile. Today morning she states she is feeling a lot better. Seen post lumbar puncture. She is walking up in the room. We did discuss that post lumbar pressure it is important for her to be in bed for a few hours to avoid headaches. We also discussed that we are still awaiting COVID-19 results and l umbar puncture was done to rule out meningitis. Vitals/I&O/Wt Last Vital Signs Temp 98.5 F 02/19/21 15:42 Pulse 71 02/19/21 15:42 Resp 18 02/19/21 15:42 BP 105/66 02/19/21 15:42 Pulse Ox 92 02/19/21 15:42 02/19/21 02/19/21 02/19/21 06:59 14:59 22:59 Intake Total 250 / 2900 290 / 290 1000 / 1290 Balance 250 / 2900 290 / 290 1000 / 1290 Weight last 48 hrs Weight 72.484 kg Physical Exam Narrative: EXAM NARRATIVE: Young female S1, S2 regular, no murmurs Extremities: Macular rash noted at her back with erythema migrans around right flank Soft abdomen no signs of peritonitis Lower extremity no edema No neurological deficits GCS 15 awake alert oriented x3 Data : 02/19/21 06:51 02/19/21 06:51 Micro: Microbiology 02/19/21 11:29 Gram Stain - Final Cerebrospinal Fluid 02/18/21 03:23 Bacterial Antigens - Final Urine Kidney 02/18/21 22:30 Gram Stain - Final Sputum - Expectorated Sputum 02/18/21 02:30 Blood Culture - Preliminary Blood NEGATIVE TO DATE 02/18/21 02:40 Blood Culture - Preliminary Blood NEGATIVE TO DATE 02/18/21 08:10 MRSA Culture - Final Nose A&P Assessment and plan (1) Fever: Status: Acute Additional A&P Information Fever: Sepsis criteria met through fever, tachycardia, tachypnea on admission. Leukopenia has resolved. Thrombocytopenia still present. COVID-19 results still awaited. Continue with isolation precautions. For now continue with home dose of prednisone taper. Lumbar puncture negative for meningitis with normal protein elevated glucose. MRSA swab negative, bacterial antigen, urine Legionella negative. Blood culture negative preliminary. Sputum culture and CSF cultures pending. Tick panel pending, Lyme's antibody negative. Stop vancomycin. Continue with oral doxycycline 100 mg twice daily and ceftriaxone. Transaminitis: Could be secondary to take fever. Check hepatitis panel, HIV panel, liver ultrasound. Continue to monitor. Continue other chronic medications noting sertraline. Carb consistent diet. DVT prophylaxis with SCDs. Full code. Attestations Medical Necessity Statement*: Patient requires further hospitalization for management of fever/sepsis secondary to possible tach infection while COVID-19 infection is ruled out. Time Spent in Patient Care: Greater than 35 minutes (>than 50% of time spent in counselling and/or direct pt care on unit) . 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
[2021-02-19 16:20] LABS: Hepatitis A Antibody IgM Non-Reactive (Nonreactive); Hepatitis B Core AB, Total Reactive (Nonreactive); Hepatitis B Surface AB 20.2 (11.5-1000); Hepatitis B Surface Antigen Non-Reactive (Nonreactive); Hepatitis C Virus Antibody Non-Reactive (Nonreactive)
[2021-02-19] MEDS: nicotine 14 mg Patch 1 PATCH TRANSDERMA (17:24)
[2021-02-19 19:14] LABS: HIV 1 & 2 Antibody Non-Reactive (Non-Reactiv); HIV 1 & 2 Antigen Non-Reactive (Non-Reactiv)
[2021-02-20] VITALS (10 sets, daily range): BP systolic 101–114; BP diastolic 60–74; PULSE 72–102; RESP 14–20; TEMP 36.7–37.3; O2SAT 91–96
[2021-02-20] MEDS: benzonatate 100 mg Capsule PO ×2 (00:15→10:35)
[2021-02-20] MEDS: acetaminophen 500 mg Tablet PO ×2 (00:20→10:34)
[2021-02-20 06:31] LABS: Coronavirus Test Green County Not Detected
--- NOTE | 2021-02-20 07:33 | PC.NURSE ---
Dr. Guajardo notified of negative COVID result on lab work, new orders received to remove precautions.
[2021-02-20] MEDS: albuterol 8 gm MDI 2 PUFF INHALATION ×3 (08:45→20:58)
[2021-02-20] MEDS: sertraline 50 mg Tablet PO (09:10)
[2021-02-20] MEDS: ascorbic acid 500 mg Tablet 1000 MG PO (09:10)
[2021-02-20] MEDS: doxycycline 100 mg Tablet PO ×2 (09:10→17:12)
[2021-02-20] MEDS: zinc gluconate 50 mg Tablet PO (09:10)
[2021-02-20] MEDS: famotidine 20 mg/2 mL INJ IVP (09:10)
[2021-02-20] MEDS: predniSONE 20 mg Tablet 60 MG PO (09:10)
[2021-02-20] MEDS: cefTRIAXone 1,000 MG in sodium chloride 0.9% (plus) 50 ML 100 MG IV (09:11)
[2021-02-20] MEDS: nicotine 14 mg Patch 1 PATCH TRANSDERMA (09:11)
[2021-02-20] MEDS: sodium chloride 0.9% 1,000 ML 75 ML IV (09:12)
--- NOTE | 2021-02-20 14:20 | PM.PN ---
Subjective Subjective: Interval history: No events overnight. Has remained hemodynamically stable. Has been afebrile over the last 24 hours as well. Denies any nausea vomiting, headache. Vitals/I&O/Wt Last Vital Signs Temp 98.1 F 02/20/21 12:00 Pulse 102 H 02/20/21 12:00 Resp 20 H 02/20/21 12:00 BP 103/66 02/20/21 12:00 Pulse Ox 91 02/20/21 12:00 02/19/21 02/20/21 02/20/21 22:59 06:59 14:59 Intake Total 1350 / 1640 1240 / 2880 330 / 330 Balance 1350 / 1640 1240 / 2880 330 / 330 Physical Exam Narrative: EXAM NARRATIVE: Young female S1, S2 regular, no murmurs Extremities: Macular rash noted at her back with erythema migrans around right flank Soft abdomen no signs of peritonitis Lower extremity no edema No neurological deficits GCS 15 awake alert oriented x3 Data : 02/20/21 15:02 02/19/21 06:51 Micro: Microbiology 02/18/21 22:30 Gram Stain - Final Sputum - Expectorated Sputum Sputum Culture - Preliminary 02/19/21 11:29 Gram Stain - Final Cerebrospinal Fluid CSF Culture - Preliminary 02/18/21 03:23 Bacterial Antigens - Final Urine Kidney A&P Assessment and plan (1) Fever: Status: Acute Additional A&P Information Fever: Sepsis criteria met through fever, tachycardia, tachypnea on admission. Leukopenia has resolved. Thrombocytopenia still present. COVID-19 negative. Remove isolation precautions. Lumbar puncture negative for meningitis with normal protein elevated glucose. MRSA swab negative, bacterial antigen, urine Legionella negative. Blood culture negative preliminary. Sputum culture and CSF cultures pending. Tick panel pending, Lyme's antibody negative. Stop vancomycin and ceftriaxone. For now continue with doxycycline 100 mg twice daily. Transaminitis: Could be secondary to tick fever. Hepatitis panel, HIV, liver ultrasound within normal limits. Continue to monitor. Continue other chronic medications noting sertraline. Carb consistent diet. DVT prophylaxis with SCDs. Full code. Discharge planning: If patient remains afebrile and CSF cultures remain negative for next 24 hours we will plan to discharge tomorrow on oral doxycycline for overall course of 14 days. Attestations Medical Necessity Statement*: Hospitalization for management of fever secondary to tick infection, transaminitis while CSF cultures are awaited to rule out meningitis. Time Spent in Patient Care: Greater than 35 minutes (>than 50% of time spent in counselling and/or direct pt care on unit). 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
[2021-02-20 15:41] LABS: Basophils % 0.3 %; Eosinophils % 0.1 %; Hemoglobin 11.9 g/dL (11.5-15.3); Lymphocytes # 5.2 10^3/uL (0.8-4.8); Lymphocytes % 38.8 %; Mean Corpuscular HGB Conc 32.2 g/dL (30.0-36.0); Mean Corpuscular Hemoglobin 33.2 pg (28.0-34.0); Mean Corpuscular Volume 103.4 fL (81-99); Mean Platelet Volume 13.1 fL (7.4-10.4); Monocytes # 0.7 10^3/uL (0.2-0.9); Neutrophils # 7.11 10^3/uL (1.8-7.7); Neutrophils % 53.5 %; Nucleated Red Blood Cells % 0 %; Platelet Count 90 10^3/cmm (130-400); Red Blood Count 3.58 10^6/uL (4.1-5.3); Red Cell Distribution Width 13.6 % (12.1-15.1); White Blood Count 13.3 10^3/uL (4.0-10.0)
[2021-02-20] MEDS: iron sucrose 200 MG in sodium chloride 0.9% (100 ml) 100 ML 220 MG IV (15:41)
[2021-02-20 16:43] LABS: Slide Review Slide Review Perform
[2021-02-20 18:52] LABS: Alanine Aminotransferase 106 U/L (0-33); Albumin Level 2.7 g/dL (3.5-5.2); Alkaline Phosphatase 206 IU/L (35-105); Anion Gap 16.2 (5-19); Aspartate Amino Transferase 79 U/L (0-32); Blood Urea Nitrogen 16 mg/dL (6-20); Calcium 7.9 mg/dL (8.5-10.5); Carbon Dioxide 20 mmol/L (22-29); Chloride 106 mmol/L (98-107); Globulin 2.1 g/dL (1.3-4.6); Glomerular Filtration Rate 92.7 mL/min (90-130); Glucose 120 mg/dL (65-115); Osmolality Calculated 290 mOsm/kg (285-295); Potassium 3.2 mmol/L (3.5-5.1); Sodium 139 mmol/L (136-145); Total Bilirubin 0.4 mg/dL (0.15-1.2); Total Protein 4.8 g/dL (6.6-8.7)
[2021-02-20 20:17] LABS: Procalcitonin 1.49 ng/mL (0-0.5)
[2021-02-20 23:36] LABS: RMSF IGG NOT DETECTED; RMSF IGM NOT DETECTED
[2021-02-21] MEDS: benzonatate 100 mg Capsule PO ×2 (01:41→08:31)
[2021-02-21] MEDS: acetaminophen 500 mg Tablet PO ×2 (01:42→08:31)
[2021-02-21 03:54] VITALS: BP 106/63; PULSE 72; RESP 20; TEMP 37.1; O2SAT 94
[2021-02-21 07:45] VITALS: BP 124/78; PULSE 77; RESP 18; TEMP 37.1; O2SAT 92
[2021-02-21] MEDS: albuterol 8 gm MDI 2 PUFF INHALATION (07:52)
[2021-02-21 07:53] VITALS: PULSE 97; RESP 20; O2SAT 96
[2021-02-21 07:58] VITALS: PULSE 86
[2021-02-21] MEDS: nicotine 14 mg Patch 1 PATCH TRANSDERMA (08:28)
[2021-02-21] MEDS: doxycycline 100 mg Tablet PO (08:28)
[2021-02-21] MEDS: sertraline 50 mg Tablet PO (08:28)
[2021-02-21 08:29] LABS: Basophils # 0.1 10^3/uL (0.0-0.1); Basophils % 0.5 %; Eosinophils % 0.1 %; Hematocrit 34.8 % (37.0-47.0); Hemoglobin 11.4 g/dL (11.5-15.3); Lymphocytes # 9.2 10^3/uL (0.8-4.8); Lymphocytes % 54.9 %; Mean Corpuscular HGB Conc 32.8 g/dL (30.0-36.0); Mean Corpuscular Hemoglobin 33.5 pg (28.0-34.0); Mean Corpuscular Volume 102.4 fL (81-99); Mean Platelet Volume 12.9 fL (7.4-10.4); Monocytes # 1.4 10^3/uL (0.2-0.9); Monocytes % 8.6 %; Neutrophils # 5.58 10^3/uL (1.8-7.7); Neutrophils % 33.6 %; Nucleated Red Blood Cells % 0 %; Platelet Count 97 10^3/cmm (130-400); Red Cell Distribution Width 13.8 % (12.1-15.1); White Blood Count 16.7 10^3/uL (4.0-10.0)
[2021-02-21 08:47] LABS: Alanine Aminotransferase 84 U/L (0-33); Albumin Level 2.6 g/dL (3.5-5.2); Alkaline Phosphatase 201 IU/L (35-105); Anion Gap 9.1 (5-19); Aspartate Amino Transferase 51 U/L (0-32); Blood Urea Nitrogen 20 mg/dL (6-20); Carbon Dioxide 28 mmol/L (22-29); Chloride 104 mmol/L (98-107); Globulin 2.1 g/dL (1.3-4.6); Glomerular Filtration Rate 110.7 mL/min (90-130); Glucose 78 mg/dL (65-115); Osmolality Calculated 287 mOsm/kg (285-295); Potassium 3.1 mmol/L (3.5-5.1); Sodium 138 mmol/L (136-145); Total Bilirubin 0.5 mg/dL (0.15-1.2); Total Protein 4.7 g/dL (6.6-8.7)
[2021-02-21 09:41] LABS: Slide Review Slide Review Perform
--- NOTE | 2021-02-21 11:09 | PM.DCS ---
Discharge Providers Date of Admission: 02/18/21 05:33 Date of Discharge: February 21, 2021 Attending Provider at Admission: Dony Sears MD Attending Provider at Discharge: Fred Guajardo MD Primary Care Provider: Du Coffey MD Diagnoses at Discharge Discharge Diagnosis (1) Fever: Status: Acute Reason for Visit Reason for Visit: High Fever Hospital Course Hospital Course Ana Maria Archer is a 40 year old female who presented today with chief complaint of fever, cough, joint pain and headaches. 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 She has removed 4-5 ticks in last 1 week her symptoms started on . She also noticed a bull's-eye rash on right flank. At home she was spiking temperature 103-104F, she was seen at [facility] ER where she was given Levaquin for possible bronchitis and was discharged home. At home her cough got better but she was still spiking high-grade temperature. Her fever is associated with headache, macular rash on her back, and joint pains. She is denying excessive coughing, productive cough, diarrhea, dysuria. Diagnostics in the ER revealed leukopenia, thrombocytopenia, abnormal transaminases, high lactic acid, patient is septic, Covid antigen negative, tick panel sent, UA unremarkable, high procalcitonin level, high CRP, CTA rule out PE however consistent with groundglass opacities. Patient also gives history of taking care of her grandparents who recently had COVID-19 pneumonia. Because of her presentation COVID-19 was ruled out with a negative PCR. She underwent lumbar puncture which was negative for any bacterial or viral meningitis though cultures are still pending and are preliminary negative. Patient was started on oral doxycycline and broad-spectrum antibiotics at first which were later narrowed down to only doxycycline and she responded well to the treatment though she continues to have mild transaminitis. For transaminitis hepatitis panel and HIV were ruled out. Liver ultrasound was negative for any acute pathology. Patient is been discharged medically stable condition advised to continue doxycycline for overall 14 days of course. She is to follow with a primary care provider within next 1 week for repeat CMP. Patient is also to have a PFT as an outpatient for evaluation of her pulmonary function given bilateral GGO's because of possibly old COVID-19 pneumonia/viral pneumonia. Physical Exam Narrative: EXAM NARRATIVE: Young female S1, S2 regular, no murmurs Extremities: Macular rash noted at her back with erythema migrans around right flank Soft abdomen no signs of peritonitis Lower extremity no edema No neurological deficits GCS 15 awake alert oriented x3 Discharge Data Data Completed and Pending: Completed Studies During Hospitalization Category Date Time Status CT angio chest PE protcl 27125 Urge nt Cat Scan 02/18/21 03:10 Completed FL guided lumbarp unc dx* 51448 Rout ine Exams 02/19/21 08:00 Completed XR chest 1V alexey ble 54542 Urgent Exams 02/18/21 02:08 Completed US liver 23648 Ro utine Ultrasound 02/19/21 11:36 Completed Pending at discharge Category Date Time Status Blood Culture Sta t Lab 02/18/21 02:30 Results CSF Culture & Gra m Stain Stat Lab 02/19/21 11:29 Results Lymes Disease Ant ibodies CSF Stat Lab 02/19/21 11:30 Received Tick Panel Stat Lab 02/18/21 02:40 Results VDRL on CSF Stat Lab 02/19/21 11:29 Received Labs from last 24 hours 02/21/21 02/21/21 02/20/21 08:19 08:19 16:30 WBC 16.7 H RBC 3.40 L Hgb 11.4 L Hct 34.8 L MCV 102.4 H MCH 33.5 MCHC 32.8 RDW 13.8 Plt Count 97 L MPV 12.9 H Neut % (Auto) 33.6 Lymph % (Auto) 54.9 Mingo % (Auto) 8.6 Eos % (Auto) 0.1 Baso % (Auto) 0.5 Reticulocyte % (Au to) Neut # (Auto) 5.58 Lymph # (Auto) 9.2 H Mingo # (Auto) 1.4 H Eos # (Auto) 0.0 Baso # (Auto) 0.1 Nucleated RBC % (a uto) 0 Nucleated RBCs # 0.0 Sodium 138 Potassium 3.1 L Chloride 104 Carbon Dioxide 28 Anion Gap 9.1 BUN 20 Creatinine 0.6 GFR Calculation 110.7 Glucose 78 Calculated Osmolal ity 287 Calcium 8.0 L Total Bilirubin 0.5 AST 51 H ALT 84 H Alkaline Phosphata se 201 H Total Protein 4.7 L Albumin 2.6 L Globulin 2.1 Procalcitonin 1.49 H Rickettsia IgG Ab Rickettsia IgM Ab 02/20/21 02/20/2102/20/21 16:30 16:30 15:02 WBC 13.3 H RBC 3.58 L Hgb 11.9 Hct 37.0 MCV 103.4 H MCH 33.2 MCHC 32.2 RDW 13.6 Plt Count 90 L MPV 13.1 H Neut % (Auto) 53.5 Lymph % (Auto) 38.8 Mingo % (Auto) 5.0 Eos % (Auto) 0.1 Baso % (Auto) 0.3 Reticulocyte % (Au to) 1.0 Neut # (Auto) 7.11 Lymph # (Auto) 5.2 H Mingo # (Auto) 0.7 Eos # (Auto) 0.0 Baso # (Auto) 0.0 Nucleated RBC % (a uto) 0 Nucleated RBCs # 0.0 Sodium 139 Potassium 3.2 L Chloride 106 Carbon Dioxide 20 L Anion Gap 16.2 BUN 16 Creatinine 0.7 GFR Calculation 92.7 Glucose 120 H Calculated Osmolal ity 290 Calcium 7.9 L Total Bilirubin 0.4 AST 79 H ALT 106 H Alkaline Phosphata se 206 H Total Protein 4.8 L Albumin 2.7 L Globulin 2.1 Procalcitonin Rickettsia IgG Ab Rickettsia IgM Ab 02/20/21 02/18/21 15:02 02:40 WBC RBC Hgb Hct MCV MCH MCHC RDW Plt Count MPV Neut % (Auto) Lymph % (Auto) Mingo % (Auto) Eos % (Auto) Baso % (Auto) Reticulocyte % (Au to) Neut # (Auto) Lymph # (Auto) Mingo # (Auto) Eos # (Auto) Baso # (Auto) Nucleated RBC % (a uto) Nucleated RBCs # Sodium Cancelled Potassium Cancelled Chloride Cancelled Carbon Dioxide Cancelled Anion Gap Cancelled BUN Cancelled Creatinine Cancelled GFR Calculation Cancelled Glucose Cancelled Calculated Osmolal ity Cancelled Calcium Cancelled Total Bilirubin Cancelled AST Cancelled ALT Cancelled Alkaline Phosphata se Cancelled Total Protein Cancelled Albumin Cancelled Globulin Cancelled Procalcitonin Rickettsia IgG Ab Not detected Rickettsia IgM Ab Not detected Addt'l Data from Hospital Stay: Laboratory Results WBC 16.7 10^3/uL (4.0 -10.0) H 02/21/21 08:19 RBC 3.40 10^6/uL (4.1 -5.3) L 02/21/21 08:19 Hgb 11.4 g/dL (11.5-1 5.3) L 02/21/21 08:19 Hct 34.8 % (37.0-47.0 ) L 02/21/21 08:19 MCV 102.4 fL (81-99) H 02/21/21 08:19 MCH 33.5 pg (28.0-34. 0) 02/21/21 08:19 MCHC 32.8 g/dL (30.0-3 6.0) 02/21/21 08:19 RDW 13.8 % (12.1-15.1 ) 02/21/21 08:19 Plt Count 97 10^3/cmm (130- 400) L 02/21/21 08:19 MPV 12.9 fL (7.4-10.4 ) H 02/21/21 08:19 Neut % (Auto) 33.6 % 02/21/21 08:19 Lymph % (Auto) 54.9 % 02/21/21 08:19 Mingo % (Auto) 8.6 % 02/21/21 08:19 Eos % (Auto) 0.1 % 02/21/21 08:19 Baso % (Auto) 0.5 % 02/21/21 08:19 Reticulocyte % (Au to) 1.0 % (0.5-2.0) 02/20/21 16:30 Neut # (Auto) 5.58 10^3/uL (1.8 -7.7) 02/21/21 08:19 Lymph # (Auto) 9.2 10^3/uL (0.8- 4.8) H 02/21/21 08:19 Mingo # (Auto) 1.4 10^3/uL (0.2- 0.9) H 02/21/21 08:19 Eos # (Auto) 0.0 10^3/uL (0.0- 0.8) 02/21/21 08:19 Baso # (Auto) 0.1 10^3/uL (0.0- 0.1) 02/21/21 08:19 Nucleated RBC % (a uto) 0 % 02/21/21 08:19 Total Counted 100 (0-100) 02/19/21 06:51 Atypical Lymphs % 7.0 % (0-5) H 02/19/21 06:51 Absolute Neutrophi ls 2.0 10^3/cmm (1.4 -6.5) 02/19/21 06:51 Segmented Neutroph ils 27 % 02/19/21 06:51 Abs Segm Neuts (Ma n) 1.6 10/cmm (1.6-7 .1) 02/19/21 06:51 Band Neutrophils 6.0 % 02/19/21 06:51 Abs Band Neuts (Ma n) 0.4 10^3/cmm (0.0 -1.2) 02/19/21 06:51 Absolute Lymphocyt es 3.8 10^3/cmm (1.2 -3.4) H 02/19/21 06:51 Lymphocytes (Manua l) 57 % 02/19/21 06:51 Monocytes (Manual) 2.0 % 02/19/21 06:51 Absolute Monocytes 0.1 10^3/cmm (0.1 -0.6) 02/19/21 06:51 Eosinophils (Manua l) 0 % 02/19/21 06:51 Absolute Eosinophi ls 0.0 10^3/cmm (0.0 -0.7) 02/19/21 06:51 Basophils (Manual) 0.0 % 02/19/21 06:51 Absolute Basophils 0.0 10^3/cmm (0.0 -0.2) 02/19/21 06:51 Metamyelocytes 2.0 % 02/19/21 06:51 Myelocytes 1.0 % 02/19/21 06:51 Nucleated RBCs 1.0 /100WBC (0-1) 02/19/21 06:51 Nucleated RBCs # 0.0 /100WBC 02/21/21 08:19 Platelet Estimate Decreased (Melia l) L 02/19/21 06:51 Giant Platelets Trace 02/18/21 02:40 Polychromasia 1+ H 02/18/21 02:40 Fibrinogen 173 mg/dL (174-49 8) L 02/19/21 06:51 D-Dimer 7.31 ug/mIFEU (0- 0.59) H 02/18/21 08:10 Sodium 138 mmol/L (136-1 45) 02/21/21 08:19 Potassium 3.1 mmol/L (3.5-5 .1) L 02/21/21 08:19 Chloride 104 mmol/L (98-10 7) 02/21/21 08:19 Carbon Dioxide 28 mmol/L (22-29) 02/21/21 08:19 Anion Gap 9.1 (5-19) 02/21/21 08:19 BUN 20 mg/dL (6-20) 02/21/21 08:19 Creatinine 0.6 mg/dL (0.5-0. 9) 02/21/21 08:19 GFR Calculation 110.7 mL/min (90- 130) 02/21/21 08:19 Glucose 78 mg/dL (65-115) 02/21/21 08:19 Estimat Average Gl ucose 103 02/19/21 06:51 Hemoglobin A1c 5.2 % (4.0-6.0) 02/19/21 06:51 Calculated Osmolal ity 287 mOsm/kg (285- 295) 02/21/21 08:19 Lactic Acid 2.6 mmol/L (0.5-2 .2) H 02/18/21 16:25 Lactic Acid (Sepsi s) 3.1 mmol/L (0.5-2 .2) H 02/18/21 20:30 Lactate 3.1 mmol/L (0.5-2 .2) H 02/18/21 02:40 Calcium 8.0 mg/dL (8.5-10 .5) L 02/21/21 08:19 Iron 15 ug/dL (37-145) L 02/18/21 08:10 TIBC 172 mcg/dl 02/18/21 08:10 % Saturation 8.7 % (20-50) L 02/18/21 08:10 Unsat Iron Binding 157 ug/dL (112-34 7) 02/18/21 08:10 Ferritin 62243 ng/mL (15-1 50) H 02/19/21 06:51 Total Bilirubin 0.5 mg/dL (0.15-1 .2) 02/21/21 08:19 AST 51 U/L (0-32) H 02/21/21 08:19 ALT 84 U/L (0-33) H 02/21/21 08:19 Alkaline Phosphata se 201 IU/L (35-105) H 02/21/21 08:19 Lactate Dehydrogen ase 681 U/L (135-214) H 02/19/21 06:51 Creatine Kinase 112 U/L (26-192) 02/19/21 06:51 C-Reactive Protein 123.8 mg/L (0.0-4 .9) H 02/19/21 06:51 NT-Pro-B Natriuret Pep 1485 pg/mL (0-125 ) H 02/18/21 08:10 Total Protein 4.7 g/dL (6.6-8.7 ) L 02/21/21 08:19 Albumin 2.6 g/dL (3.5-5.2 ) L 02/21/21 08:19 Globulin 2.1 g/dL (1.3-4.6 ) 02/21/21 08:19 Procalcitonin 1.49 ng/mL (0-0.5 ) H 02/20/21 16:30 TSH 2.80 uIU/mL (0.27 -4.20) 02/18/21 08:10 Urine Color Yellow (Yellow) 02/18/21 03:23 Urine Appearance Clear (CLEAR) 02/18/21 03:23 Urine pH 5 (5-7) 02/18/21 03:23 Ur Specific Gravit y 1.010 (1.005-1.0 30) 02/18/21 03:23 Urine Protein Trace (Negative) 02/18/21 03:23 Urine Glucose (UA) Norm (Normal) 02/18/21 03:23 Urine Ketones Negative (Negati ve) 02/18/21 03:23 Urine Blood 3+ (Negative) H 02/18/21 03:23 Urine Nitrate Negative (Negati ve) 02/18/21 03:23 Urine Bilirubin 1+ (Negative) H 02/18/21 03:23 Urine Urobilinogen 4 mg/dL (Negative ) H 02/18/21 03:23 Ur Leukocyte Paula ase Negative (Negati ve) 02/18/21 03:23 Urine RBC 5-10 /hpf (0-2) H 02/18/21 03:23 Urine WBC 0-4 /hpf (0-5) H 02/18/21 03:23 Ur Squamous Epith Cells 10-15 /hpf (0-5) H 02/18/21 03:23 Amorphous Sediment Not Reportable 02/18/21 03:23 Urine Bacteria Trace /hpf (NONE) 02/18/21 03:23 Urine Mucus 2+ /hpf 02/18/21 03:23 CSF Appearance Clear (CLEAR) 02/19/21 11:29 CSF Color Colorless (COLOR LESS) 02/19/21 11:29 CSF Specific Gravi ty 1.010 02/19/21 11:29 CSF WBC 5 /uL (0-5) 02/19/21 11:29 CSF RBC 0 10^3/uL (0-0) 02/19/21 11:29 CSF Mononuclear # Auto TNP 02/19/21 11:29 CSF Mononuclear WB Cs % TNP 02/19/21 11:29 CSF Polynuclear WB Cs # TNP 02/19/21 11:29 CSF Polynuclear WB Cs % TNP 02/19/21 11:29 CSF Glucose 89 mg/dL (40-70) H 02/19/21 11:29 CSF Total Protein 21 mg/dL (15-45) 02/19/21 11:29 Lyme Ab (Western B lot) <0.90 index 02/18/21 02:40 Nasal/Oral COVID-1 9 PCR Not detected 02/18/21 08:10 Hepatitis A IgM Ab Non-reactive (No nreactive) 02/19/21 15:17 Hep Bs Antigen Non-reactive (No nreactive) 02/19/21 15:17 Hep Bs Antibody 20.2 (11.5-1000) 02/19/21 15:17 Hep B Core Total A b Reactive (Nonrea ctive) H 02/19/21 15:17 Hepatitis C Antibo dy Non-reactive (No nreactive) 02/19/21 15:17 HIV 1&2 Ab & HIV 1 Ag Non-reactive (No n-Reactiv) 02/19/21 15:17 HIV 1&2 Antibody Non-reactive (No n-Reactiv) 02/19/21 15:17 Influenza Type A A g Negative (Negati ve) 02/18/21 05:25 Influenza Type B A g Negative (Negati ve) 02/18/21 05:25 Rickettsia IgG Ab Not detected 02/18/21 02:40 Rickettsia IgM Ab Not detected 02/18/21 02:40 SARS-CoV-2 Ag (Rap id) Negative (Negati ve) 02/18/21 05:24 Impressions Chest X-Ray 02/18/21 02:08 IMPRESSION: No acute findings. Chest CTA 02/18/21 03:10 IMPRESSION: Commonly reported imaging features of (COVID-19) pneumonia are present. Other processes such as influenza pneumonia and organizing pneumonia, as can be seen with drug toxicity and connective tissue disease, can cause a similar imaging pattern. Radiation Dose CTDIVOL = (mGy): DLP = 620.24 (mGy-cm) Lumbar Puncture Fluoroscopy 02/19/21 08:00 IMPRESSION: Fluoroscopically guided lumbar puncture. No immediate complications Liver Ultrasound 02/19/21 11:36 IMPRESSION: Normal abdominal ultrasound Microbiology 02/18/21 22:30 Sputum - Expectorated Sputum Gram Stain - Final 02/18/21 22:30 Sputum - Expectorated Sputum Sputum Culture - Final 02/19/21 11:29 Cerebrospinal Fluid Gram Stain - Final 02/19/21 11:29 Cerebrospinal Fluid CSF Culture - Preliminary 02/18/21 03:23 Urine Kidney Bacterial Antigens - Final 02/18/21 02:30 Blood Blood Culture - Preliminary NEGATIVE TO DATE 02/18/21 02:40 Blood Blood Culture - Preliminary NEGATIVE TO DATE 02/18/21 08:10 Nose MRSA Culture - Final 02/18/21 03:23 Urethra Legionella Urinary Antigen - Final Vitals: Last Vital Signs Temp 98.8 F 02/21/21 07:45 Pulse 86 02/21/21 07:58 Resp 20 H 02/21/21 07:53 BP 124/78 02/21/21 07:45 Pulse Ox 96 02/21/21 07:53 Discharge Plan Discharge Patient Disposition: Home Condition: Stable Prescriptions: New Advair Diskus 250-50 mcg/dose Blister With Device 1 puff inhalation BID.RESPIRATORY 14 Days Qty: 28 RF: 0 doxycycline monohydrate 100 mg Tablet 100 mg PO BID 7 Days Qty: 14 RF: 0 Spiriva with HandiHaler 18 mcg Capsule, W/Inhalation Device 18 mcg inhalation DAILY.RESPIRATORY 14 Days Qty: 14 RF: 0 Benzonatate [Tessalon Pearls] 100 mg PO Q8H PRN (Reason: cough) Qty: 10 RF: 0 Protonix 40 mg tablet,delayed release (DR/EC) 40 mg PO DAILY Qty: 14 RF: 0 ferrous gluconate 324 mg (37.5 mg iron) tablet 324 mg PO BID Qty: 30 RF: 0 Continued meloxicam 15 mg tablet 7.5 mg PO BID RF: 0 hydrocodone-chlorpheniramine 10-8 mg/5 mL suspension,extended rel 12 hr 5 ml PO Q12H PRN (Reason: Cough) RF: 0 sertraline 50 mg tablet 50 mg PO DAILY RF: 0 gabapentin 200 mg PO TID RF: 0 Discontinued clonidine HCl 0.1 mg tablet 0.1 mg PO BID PRN (Reason: ADHD/RESTLESSNESS) RF: 0 prednisone 20 mg tablet See Rx Instructions .ROUTE .COMPLEX RF: 0 Discharge Orders: Discharge Order (Routine); Ordered 02/21/21 Ordered By: Fred Guajardo Other Ambulatory Orders: Pulmonary Function Screen with Bronchodilator (Routine) Timeframe: 1 Week Facility: [facility] - Location: Respiratory Therapy Ordered By: Fred Guajardo Discharge Diet: Regular Discharge Activity: Resume usual activity Patient Instructions: Opioid Safety Activity Restrictions/Additional Instructions: Please follow-up with his primary care provider within next 1 week for repeat CMP. Please follow-up for pulmonary function test as directed to rule out reactive airway disease. You will be on doxycycline for 7 more days to finish a 14-day course of antibiotics. Discharge Attestations Time Spent in Discharge Care*: greater than 30 min Specific Discharge Activities: educating patient, discussing with pcp/other providers, discussing with director of casework/social workers/dc planners, documenting/other paperwork and evaluating patient/reviewing data Status at Discharge: Cognitive status at discharge: cognitively intact, Behavioral status at discharge: cooperative, Functional status at discharge: independent ambulation Overall status at discharge: patient is back to baseline Quality Metrics Clinical Quality Measures During this hospital stay, did patient experience: None Coding Level of Care Code Acute Chg FW DC note Diagnoses Fever R50.9
[2021-02-21 11:31] VITALS: BP 123/73; PULSE 96; RESP 18; TEMP 37.2; O2SAT 92
[2021-02-21 12:28] VITALS: BP 123/73; PULSE 96; RESP 18; TEMP 37.2; O2SAT 92
[2021-02-21 17:26] LABS: E. Chaffeensis AB IGG <1:64; E. Chaffeensis AB IGM <1:20
[2021-02-22 18:37] LABS: VDRL on CSF NON-REACTIVE
[2021-02-23 18:38] LABS: Lyme Disease AB (IGG),IBL NO BANDS DETECTED; Lyme Disease AB (IGM), IBL NO BANDS DETECTED
== END 2021-02-21 12:29 | disposition home or self-care (01) | DRG 872 ==
LOC: ER 05:45 → MEDSURG 06:02
PROVIDERS: Admitting Provider Internal Medicine; Emergency Provider Emergency Medicine; PCP Family Medicine Adult Medicine; Visit Provider Student in an Organized Health Care Education/Training Program
DX: A41.9 Sepsis, unspecified organism (principal); A93.8 Other specified arthropod-borne viral fevers; E87.2 Acidosis; D69.6 Thrombocytopenia, unspecified; M41.9 Scoliosis, unspecified; M19.90 Unspecified osteoarthritis, unspecified site; F32.9 Major depressive disorder, single episode, unspecified; F43.12 Post-traumatic stress disorder, chronic; M79.7 Fibromyalgia; I10 Essential (primary) hypertension; G47.00 Insomnia, unspecified; F17.210 Nicotine dependence, cigarettes, uncomplicated; E86.0 Dehydration; I95.9 Hypotension, unspecified; J40 Bronchitis, not specified as acute or chronic; Z79.891 Long term (current) use of opiate analgesic
CPT/HCPCS: 36415; 62328; 71045; 71275; 76705; 80053; 80500; 81001; 82550; 82728; 82945; 83036; 83540; 83550; 83605; 83615; 83880; 84145; 84157; 84315; 84443; 85007; 85025; 85045; 85378; 85384; 86140; 86403; 86592; 86617; 86618; 86666; 86705; 86706; 86709; 86757; 86803; 87040; 87070; 87075; 87205; 87340; 87426; 87449; 87635; 87641; 87804; 87806; 89050; 94640; 96365; 96375; 99285; J0696; J1756; J1885; J3370; J3490; J3535; J7030; J7512; Q9967

== ENCOUNTER → 2021-07-01 10:14 | Outpatient (BNVA) | payer BC, SELFPAY | PROVIDERS: PCP Family Medicine Adult Medicine; Visit Provider Family Medicine Adult Medicine | DX: R74.8 Abnormal levels of other serum enzymes (principal); R94.4 Abnormal results of kidney function studies | CPT/HCPCS: 80053; 86140 ==

== ENCOUNTER → 2021-07-25 10:52 | Outpatient (BNVA) | payer BC, SELFPAY | PROVIDERS: PCP Family Medicine Adult Medicine; Visit Provider Nurse Practitioner Family | DX: Z20.822 Contact with and (suspected) exposure to COVID-19 (principal) | CPT/HCPCS: 87635 ==

== ENCOUNTER 2021-08-03 08:13 | Outpatient (CLI) | payer BC, MEDICAID, SELFPAY ==
[2021-08-03 08:20] VITALS: BP 138/92; PULSE 83; RESP 16; TEMP 36.6; O2SAT 96
[2021-08-03 08:32] VITALS: BMI 26.5
[2021-08-03 08:48] VITALS: BP 136/90; PULSE 80; RESP 18; TEMP 36.9; O2SAT 98
[2021-08-03 09:30] VITALS: BP 141/91; PULSE 80; RESP 16; TEMP 36.9; O2SAT 98
== END 2021-08-03 08:14 | disposition home or self-care (01) ==
PROVIDERS: PCP Family Medicine Adult Medicine; Visit Provider Nurse Practitioner Family
DX: U07.1 COVID-19 (principal)
CPT/HCPCS: 96365

== ENCOUNTER 2021-10-31 00:10 | Emergency (ER) | payer BC, MEDICAID, SELFPAY ==
[2021-10-31 00:18] VITALS: BP 168/95; PULSE 78; RESP 14; TEMP 36.6; O2SAT 99; BMI 25.6
--- NOTE | 2021-10-31 00:24 | ED_ITS ---
HPI - General Adult General: Chief complaint: General Medical Stated complaint: injured L hip a few days ago Time Seen by Provider: 10/31/21 00:23 History of Present Illness: 40-year-old female comes in today with left hip pain. Patient reports pain for the last 2 days. Patient reports she was moving brush 2 or 3 days ago and was pulling on something hard and that she felt a pop in her left hip. Since then she has had increasing pain and discomfort. Patient is ambulatory on the hip. Review of Systems General: Reports: 10 or more systems reviewed and unremarkable except in HPI and below Musc: Reports: joint pain (Left hip) [facility] ED PFS: Medical History Abnormal uterine bleeding (AUB) Acquired scoliosis Allergic rhinitis due to allergen Arthritis Bipolar mood disorder Bursitis of both hips Decreased calculated GFR Elevated liver enzymes Fibromyalgia affecting multiple sites GERD (gastroesophageal reflux disease) Hypertension Insomnia Poison selena dermatitis Sepsis Tick fever Toe fracture, left Surgical History H/O section H/O laparoscopy x4 for endometriosis-- last 12/2018 no endometriosis was noted; [facility] [place] H/O LEEP (~2002) severe dysplasia History of appendectomy History of cholecystectomy History of cryosurgery on the cervix due to abnormal paps History of thoracic surgery chest tumor-- benign Family History Grandmother Family history of thyroid problem Maternal grandmother Hypertension Paternal grandmother Maternal grandmother Grandfather Hypertension Paternal grandfather Maternal grandfather Father Hypertension Hyperlipidemia Mother Hypertension Hyperlipidemia Denies family history of Colon cancer Ovarian cancer Diabetes Heart disease Breast cancer Uterine cancer Stroke Social History Smoking and tobacco status: current every day smoker cigarettes Additional social history: - Tobacco use: Everyday smoker; 6cigs daily Alcohol use: Social Drug use: Denies Female Reproductive History: Date of last menstrual period: 02/14/21 Physical Exam Const: COMMON NORMALS: alert Neck/C-Spine: COMMON NORMALS: full ROM Resp: COMMON NORMALS: normal respiratory effort and clear to auscultation bilaterally AUSCULTATION: clear to auscultation bilaterally Cardio: COMMON NORMALS: regular rate and regular rhythm RATE: regular rate RHYTHM: regular rhythm Back/Pelvis: COMMON NORMALS: thoracic and lumbar spine normal to inspection Extremity: LEFT LOWER EXTREMITY: Yes hip joint (Left posterior lateral hip discomfort and pain.) Left hip: Yes inspection, Yes palpation, Yes ROM and Yes neurovascular exam Neuro: SENSORIUM/ORIENTATION: Yes alert Psych: COMMON NORMALS: cooperative Course Vital Signs: Vital signs: Vital Signs Temperature 97.8 F 10/31/21 00:18 Pulse Rate 78 10/31/21 00:18 Respiratory Rate 14 10/31/21 00:18 Blood Pressure 168/95 10/31/21 00:18 Pulse Oximetry 99 10/31/21 00:18 MDM - General Adult Medical Decision Making 40-year-old female comes in today with complaints of left hip pain. On exam patient has tenderness and discomfort to the left lateral hip and sacroiliac area of the buttocks. Patient is weightbearing. Patient has no difficulty with range of motion. Distal pulses and sensations are normal. Differential diagnosis includes bursitis, muscle strain, osteoarthritis. I believe patient probably most likely has a muscle strain to the area more than hip joint pathology. We will treat with diclofenac and hydrocodone for patient's pain and discomfort. Patient was recommended to try to maintain activity drink plenty of water with medications and follow-up with primary care for persistent symptoms. Discharge Plan Discharge Patient Disposition: Home Clinical Impression: Strain of left hip Qualifiers: Encounter type: initial encounter Qualified Code(s): S76.012A - Strain of muscle, fascia and tendon of left hip, initial encounter Condition: Stable Prescriptions: New hydrocodone-acetaminophen 5-325 mg tablet 1 tab PO Q8H PRN (Reason: pain (scale score 7-10)) Qty: 7 0RF diclofenac sodium 75 mg tablet,delayed release (DR/EC) 75 mg PO BID Qty: 10 0RF Rx Instructions: do not take with meloxicam, ibuprofen or naproxen No Action amoxicillin-pot clavulanate [Augmentin] 875-125 mg tablet 1 tab PO Q12H 7 Days Qty: 14 0RF benzonatate [Tessalon Perles] 100 mg capsule 100 mg PO BID PRN (Reason: cough) 10 Days Qty: 20 0RF gabapentin 100 mg capsule 200 mg PO TID 30 Days Qty: 180 5RF sertraline 50 mg tablet 50 mg PO DAILY Qty: 30 5RF meloxicam 15 mg tablet 15 mg PO DAILY Qty: 30 1RF Rx Instructions: TAKE WITH MEALS omeprazole 20 mg capsule,delayed release(DR/EC) 20 mg PO DAILY 0RF Discharge Orders: Discharge ED (Routine); Ordered 10/31/21 Ordered By: Ryan Marshall Referrals: Du Coffey MD [Primary Care Provider] - Discharge Diet: Usual diet Discharge Activity: Increase activity as tolerated Patient Instructions: Musculoskeletal Pain (ED), Opioid Safety Activity Restrictions/Additional Instructions: Light activity for the next 3 to 5 days. Increasing activity after that time. Drink plenty of water with medication. Use diclofenac 1 tablet twice a day for the next 5 days for pain and inflammation, do not use with meloxicam. Use acetaminophen for further pain control. Use hydrocodone for severe pain. Use ice and heat to the area for further pain relief. Follow-up with primary care for persistent symptoms. Return to ER for new concerns. Coding Level of Care Code ED Taping Foreman for Erickson Casas
[2021-10-31] MEDS: HYDROcodone-acetaminophen 5-325 mg Tablet 1 TAB PO (00:48)
[2021-10-31] MEDS: ketorolac 30 mg/mL INJ IM (00:50)
[2021-10-31] MEDS: dexamethasone 10 mg/mL INJ IM (00:50)
--- NOTE | 2021-10-31 00:54 | XRR_ITS ---
PROCEDURE INFORMATION: Exam: XR Left Hip Exam date and time: 10/31/2021 12:54 AM Age: 40 years old Clinical indication: Hip pain; Patient HX: Patient felt pop in left hip two days ago while outside clearing brush. C/O persistent pain. TECHNIQUE: Imaging protocol: XR Left hip. Views: 2 or 3 views hip with pelvis when performed. COMPARISON: US transvaginal [id number] 03/30/2020 4:15 PM FINDINGS: Bones/joints: Unremarkable. No acute fracture. Soft tissues: Unremarkable. XR/XR hip LT 2-3V wo/w pel* [id number] IMPRESSION: 1. No acute findings.
--- NOTE | 2021-10-31 00:54 | PC.NURSE ---
pt requesting xray of the hip
== END 2021-10-31 01:15 | disposition home or self-care (01) ==
PROVIDERS: Emergency Provider Nurse Practitioner Family; PCP Family Medicine Adult Medicine
DX: S76.012A Strain of muscle, fascia and tendon of left hip, initial encounter (principal); I10 Essential (primary) hypertension; F17.210 Nicotine dependence, cigarettes, uncomplicated; X50.9XXA Other and unspecified overexertion or strenuous movements or postures, initial encounter
CPT/HCPCS: 73502; 96372; 99283; J1100; J1885

== ENCOUNTER → 2021-12-24 11:10 | Outpatient (BNVA) | payer BC, MEDICAID, SELFPAY | PROVIDERS: PCP Family Medicine Adult Medicine; Visit Provider Family Medicine Adult Medicine | DX: S69.91XA Unspecified injury of right wrist, hand and finger(s), initial encounter (principal) | CPT/HCPCS: 73130 ==

== ENCOUNTER → 2022-03-04 08:08 | Outpatient (BNVA) | payer BC, MEDICAID, SELFPAY | PROVIDERS: PCP Family Medicine Adult Medicine; Referring Provider Family Medicine Adult Medicine; Visit Provider Orthopaedic Surgery | DX: M25.562 Pain in left knee (principal); S89.92XA Unspecified injury of left lower leg, initial encounter; M70.72 Other bursitis of hip, left hip; Y04.2XXA Assault by strike against or bumped into by another person, initial encounter; S89.90XA Unspecified injury of unspecified lower leg, initial encounter | CPT/HCPCS: 73560; 73565; 99203 ==

== ENCOUNTER → 2022-03-21 08:37 | Outpatient (BNVA) | payer MEDICAID, SELFPAY | PROVIDERS: PCP Family Medicine Adult Medicine; Referring Provider Family Medicine Adult Medicine; Visit Provider Nurse Practitioner | DX: G56.01 Carpal tunnel syndrome, right upper limb (principal); G44.309 Post-traumatic headache, unspecified, not intractable | CPT/HCPCS: 99204; 99205 ==

== ENCOUNTER 2022-03-26 11:57 | Emergency (ER) | payer BC, MEDICAID, SELFPAY ==
[2022-03-26 12:07] VITALS: BP 128/79; PULSE 99; RESP 18; TEMP 36.9; O2SAT 96; BMI 23.8
--- NOTE | 2022-03-26 12:33 | W.ED.LOWEXIN ---
HPI - Extremity Injury (Lower) General: Chief Complaint: Extremity Injury, Lower Stated Complaint: Right knee pain Time Seen by Provider: 03/26/22 12:08 Source: patient Mode of arrival: wheelchair Limitations: no limitations History of Present Illness: Patient is a 41-year-old female presents to ED today for evaluation of right knee pain/swelling and injury. 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 She states later that day she was getting into a vehicle and states her foot was planted and she twisted and my knee didn't move with my leg . She states immediately following that twisting incident she began noticing discomfort to the knee. She states by that evening she was experiencing fairly significant discomfort to the joint that has continued to worsen upon waking up this morning. Patient states she is not able to bear weight on the extremity secondary to pain. MD complaint: knee injury Onset (ago): day(s) (yesterday) Place: work and street/outdoors Severity: severe Relieving factors: immobilization Exacerbating factors: weight bearing, movement and palpation Context: other (twisting) Associated symptoms: Reports inability to bear weight Other symptoms: none Review of Systems Const: Denies: fever(s), chills, body aches, fatigue or malaise Card: Denies: chest pain Resp: Denies: dyspnea GI: Denies: nausea or vomiting Musc: Reports: joint pain, joint swelling, joint warmth and limited range of motion; Denies: neck pain, back pain, extremity pain, extremity swelling or joint redness Neuro: Denies: numbness in extremities or sensory changes [facility] ED PFSH: Medical History Acquired scoliosis Allergic rhinitis due to allergen Arthritis Bipolar mood disorder Bursitis of both hips Carpal tunnel syndrome on right Decreased calculated GFR Elevated liver enzymes Fibromyalgia affecting multiple sites GERD (gastroesophageal reflux disease) Hypertension Injury of right hand including fingers Pain of left knee after injury Post-traumatic headache Toe fracture, left Surgical History H/O section H/O laparoscopy x4 for endometriosis-- last 12/2018 no endometriosis was noted; [facility] in [place] H/O LEEP (~2002) severe dysplasia History of appendectomy History of cholecystectomy History of cryosurgery on the cervix due to abnormal paps History of thoracic surgery chest tumor-- benign Family History Grandmother Family history of thyroid problem Maternal grandmother Hypertension Paternal grandmother Maternal grandmother Grandfather Hypertension Paternal grandfather Maternal grandfather Father Hypertension Hyperlipidemia Mother Hypertension Hyperlipidemia Denies family history of Colon cancer Ovarian cancer Diabetes Heart disease Breast cancer Uterine cancer Stroke Social History Smoking and tobacco status: never smoked Additional social history: - Tobacco use: Everyday smoker; 6cigs daily Alcohol use: Social Drug use: Denies Female Reproductive History: Date of last menstrual period: 02/14/21 Physical Exam Const: COMMON NORMALS: no acute distress, average body habitus, patient oriented x3, no limitations, alert and well nourished GENERAL APPEARANCE: cooperative ORIENTATION/CONSCIOUSNESS: Yes awake, Yes oriented to person, Yes oriented to place and Yes oriented to time Resp: COMMON NORMALS: normal respiratory effort and clear to auscultation bilaterally AUSCULTATION: clear to auscultation bilaterally Cardio: COMMON NORMALS: regular rate and regular rhythm RATE: regular rate RHYTHM: regular rhythm Extremity: COMMON NORMALS: capillary refill normal GENERAL: Yes normal exam except as noted RIGHT LOWER EXTREMITY: Yes knee joint OTHER: pt has significant swelling/effusion to R knee; swelling extends distally into lower leg; she has no calf pain/negative Richard's; she has overlying warmth to the R knee joint without redness or cellulitic changes; she cannot fully extend/flex joint secondary to pain/swelling but can extend/flex to a certain extent w/o much discomfort Neuro: COMMON NORMALS: patient oriented x3, moves all extremities, no focal motor deficits and no sensory deficits noted SENSORIUM/ORIENTATION: Yes alert, Yes oriented to person, Yes oriented to place and Yes oriented to time Skin: COMMON NORMALS: no rashes or lesions noted GENERAL SKIN EXAM: no rashes or lesions noted TRAUMA: no lacerations or abrasions Course Vital Signs: Vital signs: Vital Signs Temperature 98.5 F 03/26/22 13:17 Pulse Rate 99 03/26/22 13:17 Respiratory Rate 18 03/26/22 13:17 Blood Pressure 128/79 03/26/22 13:17 Pulse Oximetry 96 03/26/22 13:17 Oxygen Delivery Me thod 03/26/22 13:17 MDM - Extremity Injury (Lower) Medical Decision Making Patient has significant tenderness, warmth, and swelling to her right knee joint. Based on her history this most likely is suspicious for internal derangement of the right knee and knee effusion. Again, based on history I would not have any suspicion for a septic joint. Patient states she sees Dr. Guido for a left knee injury. I will have case management set her up an appointment to see him in regards to the right knee. Strict return ED precautions given. Will place patient in Surjit wrap, have her be nonweightbearing, place her on steroids and anti-inflammatories. Discharge Plan Discharge Patient Disposition: Home Clinical Impression: Internal derangement of right knee, Effusion of right knee Condition: Stable Prescriptions: New Medrol (Suraj) 4 mg tablets,dose pack See Rx Instructions .ROUTE .COMPLEX Qty: 21 0RF Rx Instructions: orally per package directions Changed celecoxib 200 mg capsule 200 mg PO BID Qty: 30 0RF No Action sertraline 50 mg tablet 50 mg PO DAILY Qty: 30 5RF omeprazole 20 mg capsule,delayed release(DR/EC) 20 mg PO DAILY gabapentin 300 mg capsule 600 mg PO TID Qty: 180 1RF Discharge Orders: Discharge ED (Routine); Ordered 03/26/22 Ordered By: Blank Sánchez Referrals: Du Coffey MD [Primary Care Provider] - Activity Restrictions/Additional Instructions: As we discussed you need to apply compression with the SURJIT wrap and ice and elevate the extremity as much as possible to help with swelling. Use the crutches to be non-weightbearing until told otherwise by orthopedics/Dr. Gudio. You need to return to the emergency department for worsening pain, swelling, any redness to the joint, fevers, or any other concerns you may have. Stand Alone Forms: Work/School Release Coding Level of Care Code ED Behaviour Support Teacher for Erickson Casas
--- NOTE | 2022-03-26 12:34 | XRR_ITS ---
PROCEDURE INFORMATION: Exam: XR Right Knee Exam date and time: 03/26/2022 12:39 PM Age: 41 years old Clinical indication: Pain; Right; Patient HX: History--repeated use injury, previous day was working on knees a lot in the house; Additional info: Pain/injury TECHNIQUE: Imaging protocol: Radiologic exam of the Right knee. Views: 3 views. COMPARISON: CR (KNEE AP, KNEE, KNEE AP) 03/04/2022 8:23 AM FINDINGS: Bones/joints: Normal. Soft tissues: Normal. XR/XR knee RT 3V* [id number] IMPRESSION: No acute findings.
[2022-03-26 13:17] VITALS: BP 128/79; PULSE 99; RESP 18; TEMP 36.9; O2SAT 96
--- NOTE | 2022-03-28 12:48 | DCPLANNER ---
Addendum entered by Zulema Phillips 04/03/22 15:27: Patient had a follow up appointment scheduled with Dr. Guido at ortho - patient did attend appointment. Original Note: agronomy manager had message to schedule a follow up appointment for patient with ortho. agronomy manager sent patients information to the front office staff at ortho. Patients information will be printed and reviewed. Clinic will call patient with appointment information.
== END 2022-03-26 13:37 | disposition home or self-care (01) ==
PROVIDERS: Emergency Provider Physician Assistant; PCP Family Medicine Adult Medicine
DX: M23.91 Unspecified internal derangement of right knee (principal); M25.461 Effusion, right knee; I10 Essential (primary) hypertension
CPT/HCPCS: 73562; 99283; E0114

== ENCOUNTER → 2022-04-02 09:36 | Outpatient (BNVA) | payer BC, MEDICAID, SELFPAY | PROVIDERS: PCP Family Medicine Adult Medicine; Visit Provider Orthopaedic Surgery | DX: Y08.89XA Assault by other specified means, initial encounter (principal); S89.91XA Unspecified injury of right lower leg, initial encounter | CPT/HCPCS: 99213 ==

== ENCOUNTER 2022-04-23 15:53 | Outpatient (CLI) | payer BC, MEDICAID, SELFPAY ==
--- NOTE | 2022-04-23 16:15 | MR_ITS ---
WS: [id number] MRI RIGHT KNEE NONCONTRAST TECHNIQUE: Axial PD, coronal PD fat sat, coronal PD, sagittal PD, and sagittal PD fat-sat images obta ined. CLINICAL INFORMATION: right knee injury COMPARISON: None. FINDINGS: Distal quadriceps and patella tendons are intact. Normal ACL and PCL. Prepatellar and infrapatellar s oft tissue edema. Prepatella bursitis with distention of the prepatellar bursa. Mild chronic thinning of the medial and lateral meniscus. No acute appearing meniscal tears. Mild chondromalacia medial and lateral joint compartments. Joint space narrowing worse the medial tiesha nt compartment. Normal medial and lateral patellar retinaculum. Normal medial and lateral collateral ligaments. Mild chondromalacia patella. Hypertrophic patella. Normal popliteal fossa. MR/MR knee RT wo con* [id number] IMPRESSION: 1. Distention of the prepatellar bursae with prepatellar and infrapatellar sof t tissue edema compatible with prepatellar bursitis. 2. Normal ACL and PCL. 3. Mild/moderate degenerative narrowing medial joint compartment with mild cho ndromalacia. 4. No acute appearing meniscal tears. 5. Medial and lateral collateral ligaments are intact. 6. Normal popliteal fossa. 7. Mild chondromalacia patella with slightly hypertrophic patella. 8. Tiny joint effusion. Outbridge grading: grade II: blister-like swelling/fraying of articular cartila ge extending to surface
== END 2022-04-23 15:54 | disposition home or self-care (01) ==
LOC: RAD 15:55
PROVIDERS: PCP Family Medicine Adult Medicine; Visit Provider Orthopaedic Surgery
DX: S89.91XA Unspecified injury of right lower leg, initial encounter (principal); X58.XXXA Exposure to other specified factors, initial encounter; R60.0 Localized edema; M22.41 Chondromalacia patellae, right knee; M25.461 Effusion, right knee
CPT/HCPCS: 73721

== ENCOUNTER 2022-05-05 12:12 | Emergency (ER) | payer BC, MEDICAID, SELFPAY ==
[2022-05-05 12:18] VITALS: BP 151/90; PULSE 90; RESP 18; TEMP 36.9; O2SAT 97; BMI 24.7
--- NOTE | 2022-05-05 12:47 | ED_ITS ---
HPI - Wound/Laceration General: Chief Complaint: Wound/Laceration Stated Complaint: Bite on left hip Time Seen by Provider: 05/05/22 12:41 History of Present Illness: Patient is a 41-year-old female comes to the ED with tick bite on left hip. Patient noticed tick 2 days ago and removed tick herself at home. Since she removed the tick she is having some body aches and soreness around tick bite site. There is also some redness around the tick bite. Denies any fever, chills, nausea/vomiting, shortness of breath, abdominal pain, bladder or bowel symptoms. Associated symptoms: Denies chills, fever(s), nausea or vomiting Review of Systems Const: Denies: fever(s), chills or fatigue Eyes: Denies: change in vision or eye discomfort ENMT: Denies: throat pain, odynophagia, nasal discharge or nasal congestion Card: Denies: chest pain, palpitations, edema, swelling of feet/ankles, dyspnea on exertion or orthopnea Resp: Denies: dyspnea, productive cough or non-productive cough GI: Denies: abdominal pain, nausea, vomiting, diarrhea, constipation or hematochezia : Denies: flank pain, dysuria or hematuria Musc: Denies: neck pain, back pain or extremity swelling Skin/Breast: Reports: new lesions (Tick bite on left hip with surrounding erythema); Denies: rash Neuro: Denies: headache(s), numbness in extremities or weakness in extremities PFS ED PFSH: Medical History Acquired scoliosis Allergic rhinitis due to allergen Arthritis Bipolar mood disorder Bursitis of both hips Carpal tunnel syndrome on right Decreased calculated GFR Elevated liver enzymes Fibromyalgia affecting multiple sites GERD (gastroesophageal reflux disease) Hypertension Injury of right hand including fingers Pain of left knee after injury Post-traumatic headache Toe fracture, left Surgical History H/O section H/O laparoscopy x4 for endometriosis-- last 12/2018 no endometriosis was noted; [facility] in [place] H/O LEEP (~2002) severe dysplasia History of appendectomy History of cholecystectomy History of cryosurgery on the cervix due to abnormal paps History of thoracic surgery chest tumor-- benign Family History Grandmother Family history of thyroid problem Maternal grandmother Hypertension Paternal grandmother Maternal grandmother Grandfather Hypertension Paternal grandfather Maternal grandfather Father Hypertension Hyperlipidemia Mother Hypertension Hyperlipidemia Denies family history of Colon cancer Ovarian cancer Diabetes Heart disease Breast cancer Uterine cancer Stroke Social History Smoking and tobacco status: never smoked Additional social history: - Tobacco use: Everyday smoker; 6cigs daily Alcohol use: Social Drug use: Denies Female Reproductive History: Date of last menstrual period: 04/14/22 Physical Exam Const: COMMON NORMALS: no acute distress, patient oriented x3, healthy appearing and alert GENERAL APPEARANCE: cooperative and comfortable HENMT: COMMON NORMALS: normocephalic HEAD & SCALP: normocephalic MOUTH: Normal oral and palatal mucosa present THROAT: posterior oropharynx normal and uvula midline Neck/C-Spine: COMMON NORMALS: supple GENERAL: Yes normal visual inspection Resp: COMMON NORMALS: normal respiratory effort, No retractions, No use of accessory muscles and clear to auscultation bilaterally AUSCULTATION: clear to auscultation bilaterally Cardio: COMMON NORMALS: regular rate, regular rhythm, S1 normal heart sound present, S2 normal heart sound present, No gallops present (Cardio), No clicks present (Cardio), No murmurs present (Cardio) and Peripheral pulses 2+ throughout RATE: regular rate RHYTHM: regular rhythm HEART SOUNDS: S1 normal heart sound present and S2 normal heart sound present PERIPHERAL PULSES: Peripheral pulses 2+ throughout GI: COMMON NORMALS: Normal to inspection, nondistended, normoactive bowel sounds present, Soft to palpation, non-tender and no masses PALPATION: Yes Soft to palpation : COMMON NORMALS: Yes no CVA tenderness BLADDER/KIDNEY EXAM: Yes no CVA tenderness Back/Pelvis: COMMON NORMALS: no CVA tenderness Extremity: COMMON NORMALS: normal to inspection Neuro: COMMON NORMALS: patient oriented x3 SENSORIUM/ORIENTATION: Yes alert GAIT: Yes Normal gait present Skin: NARRATIVE SKIN EXAM: Left hip?small tick bite with some surrounding erythema. Tick was removed and no embedded tick present. No erythema migrans rash noted. Course Vital Signs: Vital signs: Vital Signs Temperature 98.5 F 05/05/22 12:18 Pulse Rate 90 05/05/22 12:18 Respiratory Rate 18 05/05/22 12:18 Blood Pressure 151/90 05/05/22 12:18 Pulse Oximetry 97 05/05/22 12:18 Oxygen Delivery Me thod 05/05/22 12:18 MDM - Wound/Laceration Medical Decision Making Patient is a 41-year-old female comes to the ED with a tick bite on left hip. Vitals are stable. Patient appears nontoxic in no acute distress or pain. She has a tick bite with some surrounding erythema. No erythema migrans rash noted. Patient was diagnosed with a tick bite and was discharged home with a prescription for doxycycline. Told to follow-up with PCP in the next week for reevaluation. Return to ED precautions given. Patient understood and agreed w ith plan. Discharge Plan Discharge Patient Disposition: Home Clinical Impression: Tick bite of left hip Qualifiers: Encounter type: initial encounter Qualified Code(s): S70.262A - Insect bite (nonvenomous), left hip, initial encounter Condition: Stable Prescriptions: New doxycycline hyclate 100 mg capsule 100 mg PO BID 10 Days Qty: 20 0RF No Action sertraline 50 mg tablet 50 mg PO DAILY Qty: 30 5RF omeprazole 20 mg capsule,delayed release(DR/EC) 20 mg PO DAILY gabapentin 300 mg capsule 600 mg PO TID Qty: 180 1RF Medrol (Suraj) 4 mg tablets,dose pack See Rx Instructions .ROUTE .COMPLEX Qty: 21 0RF Rx Instructions: orally per package directions celecoxib 200 mg capsule 200 mg PO BID Qty: 30 0RF Discharge Orders: Discharge ED (Routine); Ordered 05/05/22 Ordered By: Sujit Wilson Referrals: Du Coffey MD [Primary Care Provider] - Discharge Diet: Regular Discharge Activity: Resume usual activity Patient Instructions: Tick Bite (ED) Activity Restrictions/Additional Instructions: Follow-up with medical provider as directed in the next 5 to 7 days for reevaluation. Take medications as prescribed. Return to the ER or your medical provider if condition worsens. Please read and understand discharge instructions. Thank you for choosing [facility] for your healthcare needs today. Please realize this is an emergency room and that we are providing you with a medical screening exam and this may not be complete and all inclusive of all the testing and or work up that you may need to determine your ailment or severity of your illness. It is very important that you follow up as instructed or that you return to the Emergency Department should you have concerns or if your condition changes or worsens in any way. Coding Level of Care Code ED Disability Services Coordinator for Erickson Casas
== END 2022-05-05 12:57 | disposition home or self-care (01) ==
PROVIDERS: Emergency Provider Physician Assistant; PCP Family Medicine Adult Medicine
DX: S70.262A Insect bite (nonvenomous), left hip, initial encounter (principal); W57.XXXA Bitten or stung by nonvenomous insect and other nonvenomous arthropods, initial encounter; I10 Essential (primary) hypertension
CPT/HCPCS: 99283

== ENCOUNTER 2022-05-14 11:41 | Outpatient (CLI) | payer BC, MEDICAID, SELFPAY ==
--- NOTE | 2022-05-14 07:19 | MR_ITS ---
WS: [id number] alejandra Archera MRI LEFT KNEE HISTORY: Lateral knee pain with swelling. COMPARISON: None available. Anterior cruciate ligament: Intact. Posterior cruciate ligament: Intact. Medial collateral ligament: Intact. Posterior lateral corner structures: Intact. Medial menisci: Intact. Normal signal, size and shape. Lateral meniscus: Intact. Normal signal, size and shape. Extensor mechanism: Distal quadriceps tendon and patellar tendons are intact. Fluid and soft tissue: Very small joint effusion at the knee. No edema within the muscles. No Estrada's cyst. Osseous and articular structures: Patellofemoral compartment: Normal. Medial compartment: No significant joint space narrowing or loss of cartilage. Lateral compartment: No significant joint space narrowing or loss of cartilage. MR/MR knee LT con* [id number] IMPRESSION: 1. No meniscal tear or ACL tear. 2. No joint effusion. 3. No marrow edema.
--- NOTE | 2022-05-14 11:00 | MR_ITS ---
WS: [id number] MRI BRAIN WITH AND WITHOUT CONTRAST HISTORY: G44.309 - Post-traumatic headache, unspecified, not intractable. COMPARISON: None available. TECHNIQUE: Multiplanar imaging performed through the brain with ProHance 14 ml's IV. No acute infarcts are seen. Mathew-white matter differentiation is well preserved. No susceptibility artifacts or prior lacunar infarcts. Ventricles and extra-axial spaces are normal. Clivus and pituitary gland are normal. Visualized posterior fossa and brainstem are also normal. Postcontrast images are negative for masses or vascular malformations. Dural venous sinuses are normal. Paranasal sinuses: Well aerated with no significant disease. Mastoid air cells: Normal. Calvarium and scalp: Normal. MR/MR head wo/w con [id number] IMPRESSION: 1. Normal MRI brain with contrast.
[2022-05-14] MEDS: gadobenate dimeglumine 20 mL vial IV (15:13)
== END 2022-05-14 11:42 | disposition home or self-care (01) ==
LOC: RAD 11:42
PROVIDERS: PCP Family Medicine Adult Medicine; Visit Provider Nurse Practitioner
DX: M25.562 Pain in left knee (principal); G44.309 Post-traumatic headache, unspecified, not intractable
CPT/HCPCS: 70553; 73721

== ENCOUNTER 2022-05-30 17:58 | Emergency (ER) | payer BC, MEDICAID, SELFPAY ==
[2022-05-30 18:15] VITALS: BP 145/87; PULSE 79; RESP 18; TEMP 36.8; O2SAT 97; BMI 24.7
--- NOTE | 2022-05-30 19:54 | W.ED.URI ---
HPI - URI/Sore Throat General: Chief Complaint: Upper Respiratory Infection Stated Complaint: Anxiety Time Seen by Provider: 05/30/22 19:53 History of Present Illness: 41-year-old female comes in today for complaints of cough and congestion chest congestion. Patient reports fever persisting for the last 7 to 10 days. Patient came in due persistent symptoms and concern for pneumonia. Patient appears nontoxic. Patient appears in no pain. Patient reports a history of cigarette smoking and bronchitis. Associated symptoms: Reports fever(s) Review of Systems Const: Reports: fever(s) Resp: Reports: dyspnea and productive cough PFSH ED PFSH: Medical History Acquired scoliosis Allergic rhinitis due to allergen Arthritis Bipolar mood disorder Bursitis of both hips Carpal tunnel syndrome on right Decreased calculated GFR Elevated liver enzymes Fibromyalgia affecting multiple sites GERD (gastroesophageal reflux disease) Hypertension Injury of right hand including fingers Pain of left knee after injury Post-traumatic headache Toe fracture, left Surgical History H/O section H/O laparoscopy x4 for endometriosis-- last 12/2018 no endometriosis was noted; [facility] in [place] H/O LEEP (~2002) severe dysplasia History of appendectomy History of cholecystectomy History of cryosurgery on the cervix due to abnormal paps History of thoracic surgery chest tumor-- benign Family History Grandmother Family history of thyroid problem Maternal grandmother Hypertension Paternal grandmother Maternal grandmother Grandfather Hypertension Paternal grandfather Maternal grandfather Father Hypertension Hyperlipidemia Mother Hypertension Hyperlipidemia Denies family history of Colon cancer Ovarian cancer Diabetes Heart disease Breast cancer Uterine cancer Stroke Social History Smoking and tobacco status: current every day smoker cigarettes Additional social history: - Tobacco use: Everyday smoker; 6cigs daily Alcohol use: Social Drug use: Denies Female Reproductive History: Date of last menstrual period: 05/08/22 Physical Exam Const: COMMON NORMALS: alert HENMT: COMMON NORMALS: normocephalic HEAD & SCALP: normocephalic Neck/C-Spine: COMMON NORMALS: full ROM Resp: COMMON NORMALS: normal respiratory effort AUSCULTATION: crackles and rhonchi Cardio: COMMON NORMALS: regular rate and regular rhythm RATE: regular rate RHYTHM: regular rhythm GI: COMMON NORMALS: non-tender Back/Pelvis: COMMON NORMALS: thoracic and lumbar spine normal to inspection Extremity: COMMON NORMALS: no pedal edema Neuro: SENSORIUM/ORIENTATION: Yes alert Skin: COMMON NORMALS: turgor normal GENERAL SKIN EXAM: turgor normal Course Vital Signs: Vital signs: Vital Signs Temperature 98.2 F 05/30/22 18:15 Pulse Rate 79 05/30/22 18:15 Respiratory Rate 18 05/30/22 18:15 Blood Pressure 145/87 05/30/22 18:15 Pulse Oximetry 97 05/30/22 18:15 Oxygen Delivery Me thod 05/30/22 18:15 MDM - URI/Sore Throat Medical Decision Making Patient comes in today with a 1 week history of cough and congestion with persistent fever. Patient's been tested for COVID-19 and was negative. On exam we note crackles and rhonchi on lung nash throughout. Patient is a smoker. Vital signs are unremarkable. Differential diagnosis includes pneumonia, bronchitis, COPD. Chest x-ray was unremarkable. Believe patient probably has a bronchitis versus a mild bronchopneumonia. We will go ahead and start patient on doxycycline 100 mg 2 times a day for 7 days. Patient was also given 10 mg dexamethasone IM. He will be placed on albuterol inhaler. Patient reported understanding and agreed to plan. Lab Data Radiology Impressions Chest X-Ray 05/30/22 19:58 IMPRESSION: No acute findings. Discharge Plan Discharge Patient Disposition: Home Clinical Impression: Bronchopneumonia Condition: Stable Prescriptions: New doxycycline monohydrate 100 mg capsule 100 mg PO BID 7 Days Qty: 14 0RF albuterol sulfate 90 mcg/actuation HFA aerosol inhaler 2 inh inhalation Q4H PRN (Reason: shortness of breath or wheezing) Qty: 8.5 0RF No Action sertraline 50 mg tablet 50 mg PO DAILY Qty: 30 5RF omeprazole 20 mg capsule,delayed release(DR/EC) 20 mg PO DAILY meloxicam 15 mg tablet 15 mg PO DAILY gabapentin 300 mg capsule 600 mg PO TID Qty: 180 1RF celecoxib 200 mg capsule 200 mg PO BID Qty: 30 0RF Discharge Orders: Discharge ED (Routine); Ordered 05/30/22 Ordered By: Ryan Marshall Referrals: Du Coffey MD [Primary Care Provider] - Discharge Diet: Usual diet Discharge Activity: Increase activity as tolerated Patient Instructions: Pneumonia (ED) Activity Restrictions/Additional Instructions: Drink plenty of water. Use acetaminophen and ibuprofen for fever and discomfort. Use albuterol inhaler 2 puffs every 4 hours as needed for cough, shortness of breath, or wheezing. Take antibiotic 1 capsule 2 times a day for 7 days. Follow-up with primary care in 1 week for recheck. Return to ER for new concerns or worsening symptoms. Coding Level of Care Code ED Physical Therapy Assistant for Imang Fwd Exam Comprehensive
--- NOTE | 2022-05-30 19:58 | XRR_ITS ---
PROCEDURE INFORMATION: Exam: XR Chest Exam date and time: 05/30/2022 8:03 PM Age: 41 years old Clinical indication: Cough; Prior surgery; Surgery date: 6+ months; Surgery type: Thoracotomy; Additional info: Chest congestion TECHNIQUE: Imaging protocol: Radiologic exam of the chest. Views: 1 view. COMPARISON: CR XR chest 1V portable [id number] 02/18/2021 2:47 AM FINDINGS: Lungs: No consolidation. Pleural spaces: Unremarkable. No pleural effusion. No pneumothorax. Heart/Mediastinum: No cardiomegaly. Bones/joints: No acute findings. XR/XR chest 1V portable [id number] IMPRESSION: No acute findings.
[2022-05-30] MEDS: doxycycline 100 mg Tablet PO (20:04)
[2022-05-30] MEDS: dexamethasone 10 mg/mL INJ IM (20:04)
== END 2022-05-30 20:40 | disposition home or self-care (01) ==
PROVIDERS: Emergency Provider Nurse Practitioner Family; PCP Family Medicine Adult Medicine
DX: J18.0 Bronchopneumonia, unspecified organism (principal); F17.210 Nicotine dependence, cigarettes, uncomplicated; I10 Essential (primary) hypertension
CPT/HCPCS: 71045; 96372; 99284; J1100

== ENCOUNTER 2022-06-05 00:17 | Emergency (ER) | payer BC, MEDICAID, SELFPAY ==
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
[2022-06-05 00:39] VITALS: BP 141/95; PULSE 81; RESP 16; TEMP 36.6; O2SAT 96; BMI 24.5
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
[2022-06-05] MEDS: acetaminophen 500 mg Tablet PO (01:15)
[2022-06-05] MEDS: ibuprofen 600 mg Tablet PO (01:15)
== END 2022-06-05 01:17 | disposition home or self-care (01) ==
PROVIDERS: Emergency Provider Nurse Practitioner Family; PCP Family Medicine Adult Medicine
DX: S62.655A Nondisplaced fracture of middle phalanx of left ring finger, initial encounter for closed fracture (principal); Y04.8XXA Assault by other bodily force, initial encounter
CPT/HCPCS: 73130; 99283

== ENCOUNTER → 2022-07-17 15:10 | Outpatient (BNVA) | payer BC, MEDICAID, SELFPAY | PROVIDERS: PCP Family Medicine Adult Medicine; Visit Provider Registered Nurse Neonatal Intensive Care | DX: M79.643 Pain in unspecified hand (principal); Z23 Encounter for immunization | CPT/HCPCS: 73130 ==

== ENCOUNTER 2022-08-21 08:15 | Day surgery (SDC) | payer BC, MEDICAID, SELFPAY ==
[2022-08-20 14:07] VITALS: BMI 25.2
[2022-08-21 08:33] VITALS: BP 138/86; PULSE 82; RESP 16; TEMP 36.7; O2SAT 97
[2022-08-21] MEDS: sodium chloride 0.9% 1,000 ML 30 ML IV (08:35)
[2022-08-21 08:42] LABS: OR HCG Qualitative Urine Negative (Negative)
--- NOTE | 2022-08-21 09:13 | P.ANESASSM_ITS ---
Pre-Anesthetic Assessment Height/Weight: Height 1.57 m Weight 62.596 kg Temp Pulse Resp BP Pulse Ox O2 Del Method 98.1 F 82 16 138/86 97 08/21/22 08:33 08/21/22 08:33 08/21/22 08:33 08/21/22 08:33 08/21/22 08:33 08/21/22 08:37 Preop Diagnosis: Carpal tunnel syndrome right Operation Date: 08/21/22 09:50 Proposed Procedures p right carpal tunnel release/ 01514,G56.01(Right) - Jorge Guido MD Familial anesthetic complications: None Was Beta Truman taken within 24 hours: N/A Was Clonidine taken within 24 hours: N/A Last intake: Intake Last Liquid Date 08/20/22 Last Liquid Time 23:45 Last Solid Date 08/20/22 Last Solid Time 22:30 Social Tobacco and No alcohol Exam alert, oriented x 3, clear to auscultation bilaterally and regular rate & rhythm Airway Mallampati: Class IV Dentition: false CV/HEM Hypertension GI Gastroesophageal Reflux Disease Neuropsych adhd Anesthetic Plan ASA status: 2 Anesthesia: MAC Risk of > 500 ml blood loss (7ml/kg in children): No Medications/Allergies Home Medications Medication Instructions Recorded Confirmed Last Taken Type omeprazole 20 mg capsule,delayed 20 mg PO DAILY 07/25/21 08/20/22 08/20/22 History release gabapentin 300 mg capsule 600 mg PO TID #180 caps 03/21/22 08/20/22 08/20/22 Rx albuterol sulfate 90 mcg/actuation 2 inh inhalation Q4H PRN shortness 05/30/22 08/20/22 Unknown Rx aerosol inhaler of breath or wheezing #8.5 grams meloxicam 15 mg tablet 15 mg PO DAILY 08/20/22 08/20/22 08/20/22 History Allergies Allergy/AdvReac Type Severity Reaction Status Date / Time No Known Allergies Allergy Verified 08/20/22 13:58 Current Medications Generic Name Dose Route Start Last Admin Trade Name Freq PRN Reason Stop Dose Admin Sodium Chloride 1,000 mls @ 30 mls/hr 08/21/22 08:30 08/21/22 08:35 Sodium Chloride 0.9% IV 08/22/22 08:29 30 mls/hr .Q24H CANELO Administration PFSH Anesthesia Medical History (Updated 07/26/22 @ 11:33 by Du Coffey MD) Acquired scoliosis Allergic rhinitis due to allergen Bipolar mood disorder Bursitis of both hips Carpal tunnel syndrome on right Elevated liver enzymes Fibromyalgia affecting multiple sites GERD (gastroesophageal reflux disease) Hypertension Post-traumatic headache Surgical History H/O section H/O laparoscopy x4 for endometriosis-- last 12/2018 no endometriosis was noted; [facility] in [place] H/O LEEP (~2002) severe dysplasia History of appendectomy History of cholecystectomy History of cryosurgery on the cervix due to abnormal paps History of thoracic surgery chest tumor-- benign Family History Grandmother Family history of thyroid problem Maternal grandmother Hypertension Paternal grandmother Maternal grandmother Grandfather Hypertension Paternal grandfather Maternal grandfather Father Hypertension Hyperlipidemia Mother Hypertension Hyperlipidemia Denies family history of Colon cancer Ovarian cancer Diabetes Heart disease Breast cancer Uterine cancer Stroke Social History Smoking and tobacco status: current every day smoker cigarettes Additional social history: - Tobacco use: Everyday smoker; 6cigs daily Alcohol use: Social Drug use: Denies Female Reproductive History Date of last menstrual period: 05/08/22 Data Anesthesia Cardiac Studies: No Data to Display
--- NOTE | 2022-08-21 10:42 | W.PM.OPSFHP ---
Same Day Surgery H&P Indication for Procedure/HPI DATE OF PROCEDURE: August 21, 2022 CHIEF COMPLAINT/INDICATIONFOR SURGICAL PROCEDURE: Right carpal tunnel syndrome here for PREOP DIAGNOSIS: Carpal tunnel syndrome right PLANNED PROCEDURE: Operation Date: 08/21/22 09:50 Proposed Procedures p right carpal tunnel release/ 88807,G56.01(Right) - Jorge Guido MD 41 year old female patient here surgical treatment of her right carpal tunnel syndrome.? She states she had symptoms for over a year.? Initially things began with numbness in her radial 3 digits of the right hand with driving at night.? She states that she has had gradually worsening pain and numbness. She describes numbness and pain involving the thumb, index, and long finger that is now constant. She states that her pain keeps her awake at night, as well as wakes her from sleep. She states that she frequently drops things due to her numbness.? Describes difficulty driving.? She has tried splints in the past without help.? She states she is currently miserable and ready to proceed with what she anticipates as surgery Medications/Allergies* Home Medications Medication Instructions Recorded Confirmed Type omeprazole 20 mg capsule,delayed 20 mg PO DAILY 07/25/21 08/20/22 History release meloxicam 15 mg tablet 15 mg PO DAILY 08/20/22 08/20/22 History Allergies/Adverse Reactions Allergy/AdvReac Type Severity Reaction Status Date / Time No Known Allergies Allergy Verified 08/20/22 13:58 Current Medications: Generic Name Dose Route Start Last Admin Trade Name Freq PRN Reason Stop Dose Admin Sodium Chloride 1,000 mls @ 30 mls/hr 08/21/22 08:30 08/21/22 08:35 Sodium Chloride 0.9% IV 08/22/22 08:29 30 mls/hr .Q24H CANELO Administration Pertinent History/Comorbid Conditions* Medical History (Updated 07/26/22 @ 11:33 by Du Coffey MD) Acquired scoliosis Allergic rhinitis due to allergen Bipolar mood disorder Bursitis of both hips Carpal tunnel syndrome on right Elevated liver enzymes Fibromyalgia affecting multiple sites GERD (gastroesophageal reflux disease) Hypertension Post-traumatic headache Surgical History (Updated 03/23/20 @ 09:35 by Gabrielle Murphy APN, WHDAVID) H/O section H/O laparoscopy x4 for endometriosis-- last 12/2018 no endometriosis was noted; [facility] in [place] H/O LEEP (~2002) severe dysplasia History of appendectomy History of cholecystectomy History of cryosurgery on the cervix due to abnormal paps History of thoracic surgery chest tumor-- benign Family History (Updated 03/23/20 @ 09:03 by Juliana Willis LPN) Hyperlipidemia Father Mother Family history of thyroid problem Grandmother Maternal grandmother Hypertension Grandmother Paternal grandmother Maternal grandmother Grandfather Paternal grandfather Maternal grandfather Father Mother Denies family history of Colon cancer Ovarian cancer Diabetes Heart disease Breast cancer Uterine cancer Stroke Social History Smoking and tobacco status: current every day smoker cigarettes Additional social history: - Tobacco use: Everyday smoker; 6cigs daily Alcohol use: Social Drug use: Denies Pertinent Exam Findings alert, oriented x 3, clear to auscultation bilaterally, regular rate & rhythm and operative site marked EXAM NARRATIVE: HEAD: Normocephalic/atraumatic. NECK: Soft supple nontender. HEART: Normal heart sounds, regular rhythm. CHEST: Clear to auscultation. ABDOMEN: Soft nontender nondistended.? WRIST/ELBOW right No tenderness right wrist or forearm RANGE OF MOTION: ? EXAMINED EXTREMITY ? Elbow extention: Full extension ? Elbow flexion: 160 ? Wrist dorsiflexion:70 ? Wrist palmarflexion: 70 ? Supination:70 ? Pronation: 70 Positive Tinel's and compression test across the right wrist.? Negative Tinel's behind medial epicondyle Trotter sensation right thumb index and long finger No muscular atrophy right hand Strong computer consultant and interossei strength. 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
[2022-08-21] MEDS: ceFAZolin 2,000 MG in sodium chloride 0.9% (plus) 50 ML 100 MG IV (10:44)
--- NOTE | 2022-08-21 11:16 | PM.OP ---
Operative Report Date of procedure: August 21, 2022 Pre-op diagnosis: Preop Diagnosis Carpal tunnel syndrome right Post-op diagnosis: same Post-op diagnosis: Same Procedure done: Right carpal tunnel release Pathology: none sent Surgeon: Jorge Guido Anesthesia: MAC Estimated blood loss (mL): 2 Tourniquet time (min): 15 Findings: No masses or space-occupying lesions were seen within the carpal tunnel Condition: stable Disposition: PACU Procedure: Patient was taken to the operating room and sedation provided by the anesthesia service. She was prepped and draped with the arm exposed. A timeout was performed. With 2 cc of half percent Marcaine. A 3 cm long incision was made in line with the fourth ray from the distal edge of the carpal tunnel extending proximally. The subcutaneous fat and palmar fascia was divided with a scalpel blade. Under loupe magnification the ulnar neurovascular bundle was identified distally. A hemostat could be passed under the transverse carpal ligament allowing the distal 25% to be divided. A slotted guide was then passed beneath the transverse carpal ligament and the middle 50% divided. Blunt scissors were then passed over the guide freeing the proximal ligament. The tourniquet was deflated. Hemostasis provided with electrocautery. Wound edges were infiltrated with 8 cc of a half percent Marcaine solution. Skin edges were reapproximated with 3-0 Prolene. Sterile dressings were applied. The patient was taken to the recovery room in stable condition
[2022-08-21 11:20] VITALS: BP 132/81; PULSE 69; RESP 16; O2SAT 100
[2022-08-21 11:25] VITALS: BP 136/79; PULSE 68; RESP 16; O2SAT 99
[2022-08-21 11:30] VITALS: BP 141/83; PULSE 62; RESP 16; TEMP 36.2; O2SAT 99
[2022-08-21 11:34] VITALS: BP 142/84; PULSE 62; RESP 16; O2SAT 99
[2022-08-21 11:46] VITALS: BP 162/90; PULSE 67; RESP 16; TEMP 36.2; O2SAT 98
--- NOTE | 2022-08-21 16:50 | ANE.PACU2 ---
Inpatient post-anesthesia follow up: Airway intact: Yes Vital signs: Temperature 97.2 F Pulse Rate 67 Respiratory Rate 16 Blood Pressure 162/90 Pulse Oximetry 98 Oxygen Delivery Me thod Room Air Oxygen Flow Rate Fraction of Inspir ed Oxygen Hydration adequate: Yes Nausea and vomiting: No Pain level: 1 Mental status: Baseline
== END 2022-08-21 11:59 | disposition home or self-care (01) ==
PROVIDERS: Anesthesiology; PCP Family Medicine Adult Medicine; Visit Provider Orthopaedic Surgery
PROC: (CPT 64721; principal; 2022-08-21 09:40)
DX: G56.01 Carpal tunnel syndrome, right upper limb (principal); I10 Essential (primary) hypertension; K21.9 Gastro-esophageal reflux disease without esophagitis; F90.9 Attention-deficit hyperactivity disorder, unspecified type; M79.7 Fibromyalgia; F17.210 Nicotine dependence, cigarettes, uncomplicated
CPT/HCPCS: 64721; 81025; 84703; J0690; J2250; J3010; J3490; J7030

== ENCOUNTER → 2022-10-27 14:48 | Outpatient (BNVA) | payer BC, MEDICAID, SELFPAY | PROVIDERS: PCP Family Medicine; Visit Provider Registered Nurse Neonatal Intensive Care | DX: S89.91XA Unspecified injury of right lower leg, initial encounter (principal); W19.XXXA Unspecified fall, initial encounter | CPT/HCPCS: 73130; 73562 ==

== ENCOUNTER → 2022-11-27 14:00 | Outpatient (BNVA) | payer BC, MEDICAID, SELFPAY | PROVIDERS: PCP Family Medicine; Visit Provider Obstetrics & Gynecology | DX: Z01.419 Encounter for gynecological examination (general) (routine) without abnormal findings (principal); Z87.42 Personal history of other diseases of the female genital tract | CPT/HCPCS: 83036; 83520; 83525; 84443; 87624 ==

== ENCOUNTER → 2022-12-06 16:34 | Outpatient (BNVA) | payer BC, MEDICAID, SELFPAY | PROVIDERS: PCP Family Medicine Adult Medicine; Visit Provider Family Medicine | DX: M25.521 Pain in right elbow (principal) | CPT/HCPCS: 73070 ==

== ENCOUNTER 2022-12-16 23:33 | Emergency (ER) | payer BC, MEDICAID, SELFPAY ==
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
[2022-12-16 23:39] VITALS: BP 145/88; PULSE 78; RESP 18; TEMP 36.9; O2SAT 99; BMI 27.0
[2022-12-16 23:51] VITALS: BP 149/98; PULSE 96; RESP 16; O2SAT 100
--- NOTE | 2022-12-16 23:52 | W.ED.FALL ---
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 Associated symptoms-after fall: Denies abdominal pain, chest pain, headache(s) or neck pain Review of Systems Const: Denies: fever(s) or chills Eyes: Denies: blurry vision ENMT: Denies: throat pain or dental pain Card: Denies: chest pain Resp: Denies: dyspnea GI: Denies: abdominal pain Musc: Reports: extremity pain; Denies: neck pain or back pain Skin/Breast: Denies: rash Neuro: Denies: headache(s) PFSH ED PFSH: Medical History Acquired scoliosis Allergic rhinitis due to allergen Bipolar mood disorder Bursitis of both hips Carpal tunnel syndrome on right Elevated liver enzymes Fibromyalgia affecting multiple sites GERD (gastroesophageal reflux disease) Hypertension Insomnia Surgical History H/O section H/O laparoscopy x4 for endometriosis-- last 12/2018 no endometriosis was noted; [facility] in [place] H/O LEEP (~2002) severe dysplasia History of appendectomy History of cholecystectomy History of cryosurgery on the cervix due to abnormal paps History of thoracic surgery chest tumor-- benign Postoperative state Family History Grandmother Family history of thyroid problem Maternal grandmother Hypertension Paternal grandmother Maternal grandmother Grandfather Hypertension Paternal grandfather Maternal grandfather Father Hypertension Hyperlipidemia Mother Hypertension Hyperlipidemia Denies family history of Colon cancer Ovarian cancer Diabetes Heart disease Breast cancer Uterine cancer Stroke Social History Substance/Drug Use: former Physical Exam Const: COMMON NORMALS: no acute distress, average body habitus and patient oriented x3 HENMT: COMMON NORMALS: normocephalic and atraumatic HEAD & SCALP: normocephalic and atraumatic Eye: COMMON NORMALS: conjunctivae normal CONJUNCTIVA: Yes conjunctivae normal Neck/C-Spine: COMMON NORMALS: supple Chest: COMMONS NORMALS: normal inspection of the chest Resp: COMMON NORMALS: normal respiratory effort Cardio: COMMON NORMALS: regular rate RATE: regular rate Extremity: OTHER: Some tenderness swelling right lateral ankle no knee or foot tenderness no tenderness over her calcaneus Neuro: COMMON NORMALS: patient oriented x3 Psych: COMMON NORMALS: mental status grossly normal Skin: COMMON NORMALS: no rashes or lesions noted GENERAL SKIN EXAM: no rashes or lesions noted Course Vital Signs: Vital signs: Vital Signs Temperature 98.5 F 12/16/22 23:39 Pulse Rate 96 12/16/22 23:51 Respiratory Rate 16 12/16/22 23:51 Blood Pressure 149/98 12/16/22 23:51 Pulse Oximetry 100 12/16/22 23:51 Oxygen Delivery Me thod Room Air 12/16/22 23:39 MDM - Fall Medical Decision Making Patient presents here with an ankle sprain she has been able to ambulate on it x-ray shows no fracture we will place her in an Surjit wrap and Naprosyn she is to follow-up with PCP and return if worsening she understands agrees to plan. Discharge Plan Discharge Patient Disposition: Home Clinical Impression: Right ankle sprain Condition: Stable Prescriptions: New Naprosyn 500 mg tablet 500 mg PO BID PRN (Reason: pain) Qty: 20 0RF No Action prenat.vits,abilio,vah-opkn-eunlz Tablet 1 tab PO DAILY clonidine HCl 0.1 mg tablet 0.1 mg PO BID gabapentin 300 mg capsule 600 mg PO TID Qty: 180 1RF meloxicam 15 mg tablet 15 mg PO DAILY Qty: 30 5RF prednisone 20 mg tablet 40 mg PO DAILY Qty: 10 0RF sertraline 100 mg tablet 100 mg PO BID Qty: 60 3RF tramadol 50 mg tablet 50 mg PO Q6H PRN (Reason: pain) 30 Days Qty: 60 1RF Discharge Orders: Discharge ED (Routine); Ordered 12/16/22 Ordered By: Krystal Case Referrals: Du Coffey MD [Primary Care Provider] - Discharge Diet: Advance as tolerated Discharge Activity: Resume usual activity Patient Instructions: Ankle Sprain (ED) Coding Level of Care Code ED 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
[2022-12-17 00:13] VITALS: BP 130/93; PULSE 92; RESP 16; O2SAT 99
[2022-12-17 00:14] VITALS: BP 130/93; PULSE 92; RESP 16; TEMP 36.9; O2SAT 99
== END 2022-12-17 00:15 | disposition home or self-care (01) ==
PROVIDERS: Emergency Provider Emergency Medicine; PCP Family Medicine Adult Medicine
DX: S93.401A Sprain of unspecified ligament of right ankle, initial encounter (principal); I10 Essential (primary) hypertension; W08.XXXA Fall from other furniture, initial encounter
CPT/HCPCS: 73610; 99283

== ENCOUNTER → 2022-12-17 12:36 | Outpatient (BNVA) | payer BC, MEDICAID, SELFPAY | PROVIDERS: PCP Family Medicine Adult Medicine; Visit Provider Obstetrics & Gynecology | DX: N93.9 Abnormal uterine and vaginal bleeding, unspecified (principal); N83.12 Corpus luteum cyst of left ovary | CPT/HCPCS: 76830 ==

== ENCOUNTER 2023-01-16 04:21 | Emergency (ER) | payer BC, MEDICAID, SELFPAY ==
[2023-01-16 04:29] VITALS: BP 136/84; PULSE 113; RESP 18; TEMP 36.6; O2SAT 99; BMI 26.0
[2023-01-16] MEDS: amoxicillin-clav 875-125 mg Tablet 1 TAB PO (04:49)
[2023-01-16] MEDS: HYDROcodone-acetaminophen 7.5-325 mg Tablet 1 TAB PO (04:49)
[2023-01-16] MEDS: lidocaine 1% INJ 10 mL (per mL) 20 ML INJECTION (04:50)
--- NOTE | 2023-01-16 04:51 | W.ED.ANIMALB ---
HPI - Animal Bite General: Chief Complaint: Animal Bite Stated Complaint: Rt Leg dog Bite Time Seen by Provider: 01/16/23 04:22 Source: patient Mode of arrival: ambulatory Limitations: no limitations History of Present Illness: 42-year-old female who states that her significant others lucy bit her on the leg just prior to arrival. She states that he bit her posterior upper leg she does have a puncture wound along with 3 lacerations. Denies any other injuries dog is up-to-date on their his vaccine. Associated symptoms: Deny chills, fever(s) or headache(s) Review of Systems Const: Denies: fever(s) or chills ENMT: Denies: throat pain or dental pain Card: Denies: chest pain Resp: Denies: dyspnea GI: Denies: abdominal pain, nausea, vomiting or diarrhea Musc: Denies: neck pain or back pain Skin/Breast: Denies: rash Neuro: Denies: headache(s) All/Imm: Denies: urticaria PFSH ED PFSH: Medical History Acquired scoliosis Allergic rhinitis due to allergen Bipolar mood disorder Bursitis of both hips Carpal tunnel syndrome on right Elevated liver enzymes Fibromyalgia affecting multiple sites GERD (gastroesophageal reflux disease) Hypertension Insomnia Surgical History H/O section H/O laparoscopy x4 for endometriosis-- last 12/2018 no endometriosis was noted; [facility] in [place] H/O LEEP (~2002) severe dysplasia History of appendectomy History of cholecystectomy History of cryosurgery on the cervix due to abnormal paps History of thoracic surgery chest tumor-- benign Postoperative state Family History Grandmother Family history of thyroid problem Maternal grandmother Hypertension Paternal grandmother Maternal grandmother Grandfather Hypertension Paternal grandfather Maternal grandfather Father Hypertension Hyperlipidemia Mother Hypertension Hyperlipidemia Denies family history of Colon cancer Ovarian cancer Diabetes Heart disease Breast cancer Uterine cancer Stroke Social History Substance/Drug Use: former Physical Exam Const: COMMON NORMALS: no acute distress and patient oriented x3 HENMT: COMMON NORMALS: normocephalic and atraumatic HEAD & SCALP: normocephalic and atraumatic Eye: COMMON NORMALS: conjunctivae normal CONJUNCTIVA: Yes conjunctivae normal Neck/C-Spine: COMMON NORMALS: supple Chest: COMMONS NORMALS: normal inspection of the chest Resp: COMMON NORMALS: normal respiratory effort Cardio: COMMON NORMALS: regular rate RATE: regular rate GI: INSPECTION: Yes normal to inspection Extremity: COMMON NORMALS: full ROM Neuro: COMMON NORMALS: patient oriented x3 Psych: COMMON NORMALS: mental status grossly normal Skin: NARRATIVE SKIN EXAM: Dog bite to the left upper posterior leg and left upper hamstring. She has 2 small puncture wounds then 3 lacerations 1 laceration is 2 cm there is 2 cm as well slightly gaping and then a 4 cm laceration Procedures Laceration Laceration 1: Site: lower extremity Side (If applicable): left Size (cm): 5 Description: linear Depth: simple, single layer Local Anesthetic: lidocaine 1% Amount of anesthesia used (mL): 8 Pre-repair: wound explored, irrigated extensively and deep structures intact Skin layer closed with: nylon Size (cm): 4-0 Number of sutures: 3 Technique: simple, interrupted Laceration 2: Site: lower extremity Side (If applicable): left Size (cm): 3 Description: linear Depth: simple, single layer Local Anesthetic: lidocaine 1% Amount of anesthesia used (mL): 7 Pre-repair: wound explored, irrigated extensively and deep structures intact Skin layer closed with: nylon Size (cm): 4-0 Number of sutures: 3 Technique: simple, interrupted Laceration 3: Site: lower extremity Side (If applicable): left Size (cm): 2 Description: linear Depth: simple, single layer Local Anesthetic: lidocaine 1% Amount of anesthesia used (mL): 5 Pre-repair: wound explored, irrigated extensively and deep structures intact Skin layer closed with: nylon Size (cm): 5-0 Number of sutures: 1 Technique: simple, interrupted Course Vital Signs: Vital signs: Vital Signs Temperature 98 F 01/16/23 04:29 Pulse Rate 113 H 01/16/23 04:29 Respiratory Rate 18 01/16/23 04:29 Blood Pressure 136/84 01/16/23 04:29 Pulse Oximetry 99 01/16/23 04:29 MDM - Animal Bite Medical Decision Making Patient presents with a dog bite to her left upper leg posteriorly. I did repair 3 lacerations loosely she had 2 other puncture wounds were left open to heal we will place her on Augmentin and hydrocodone she is return in 14 days for suture removal. Return if any signs of infection Discharge Plan Discharge Patient Disposition: Home Clinical Impression: Dog bite, Laceration Condition: Stable Prescriptions: New hydrocodone-acetaminophen 5-325 mg tablet 1 tab PO Q6H PRN (Reason: pain) Qty: 14 0RF amoxicillin-pot clavulanate [Augmentin] 500-125 mg tablet 1 tab PO BID Qty: 14 0RF No Action prenat.vits,abilio,ivr-wvds-glfwo Tablet 1 tab PO DAILY clonidine HCl 0.1 mg tablet 0.1 mg PO BID gabapentin 300 mg capsule 600 mg PO TID Qty: 180 1RF meloxicam 15 mg tablet 15 mg PO DAILY Qty: 30 5RF prednisone 20 mg tablet 40 mg PO DAILY Qty: 10 0RF sertraline 100 mg tablet 100 mg PO BID Qty: 60 3RF tramadol 50 mg tablet 50 mg PO Q6H PRN (Reason: pain) 30 Days Qty: 60 1RF Naprosyn 500 mg tablet 500 mg PO BID PRN (Reason: pain) Qty: 20 0RF Discharge Orders: Discharge ED (Routine); Ordered 01/16/23 Ordered By: Krystal Case Referrals: Du Coffey MD [Primary Care Provider] - Discharge Diet: Advance as tolerated Discharge Activity: Resume usual activity Patient Instructions: Animal Bite (ED), Care For Your Stitches (ED), Opioid Safety Activity Restrictions/Additional Instructions: suture removal in 14 days Coding Level of Care Code ED Air Brake Tester for Erickson Casas
[2023-01-16] MEDS: tetanus-dipt-pertussis 0.5 mL SDV IM (05:16)
== END 2023-01-16 05:18 | disposition home or self-care (01) ==
PROVIDERS: Emergency Provider Emergency Medicine; PCP Family Medicine Adult Medicine
DX: S71.151A Open bite, right thigh, initial encounter (principal); W54.0XXA Bitten by dog, initial encounter; I10 Essential (primary) hypertension; Z23 Encounter for immunization
CPT/HCPCS: 12004; 90471; 90715; 99284

== ENCOUNTER → 2023-05-14 18:38 | Outpatient (BNVA) | payer BC, MEDICAID, SELFPAY | PROVIDERS: PCP Family Medicine Adult Medicine; Visit Provider Emergency Medicine | DX: R05.9 Cough, unspecified (principal); Z20.822 Contact with and (suspected) exposure to COVID-19 | CPT/HCPCS: 87426 ==

== ENCOUNTER 2023-06-02 17:28 | Emergency (ER) | payer BC, MEDICAID, SELFPAY ==
--- NOTE | 2023-06-02 17:29 | XRR_ITS ---
PROCEDURE INFORMATION: Exam: XR Left Shoulder Exam date and time: 06/02/2023 5:35 PM Age: 42 years old Clinical indication: Injury or trauma; Fall; Blunt trauma (contusions or hematomas); Shoulder; Left TECHNIQUE: Imaging protocol: Radiologic exam of the left shoulder. Views: 2 or more views. COMPARISON: CR XR chest 1V portable [id number] 05/30/2022 8:03 PM FINDINGS: Bones/joints: Normal. Soft tissues: Normal. XR/XR shoulder LT min 2V* [id number] IMPRESSION: No acute findings.
[2023-06-02 17:57] VITALS: BP 167/102; PULSE 95; RESP 18; TEMP 36.7; O2SAT 97; BMI 29.2
--- NOTE | 2023-06-02 18:24 | XRR_ITS ---
PROCEDURE INFORMATION: Exam: XR Left Knee Exam date and time: 06/02/2023 6:48 PM Age: 42 years old Clinical indication: Injury or trauma; Fall; Blunt trauma; Knee; Left; Additional info: Trauma/injury TECHNIQUE: Imaging protocol: Radiologic exam of the left knee. Views: 3 views. COMPARISON: No relevant prior studies available. FINDINGS: Bones/joints: Osseous structures are intact. Negative for fracture. Joint spaces are preserved. Soft tissues: Normal. XR/XR knee LT 3V* [id number] IMPRESSION: No acute findings.
--- NOTE | 2023-06-02 18:24 | XRR_ITS ---
PROCEDURE INFORMATION: Exam: XR Lumbosacral Spine Exam date and time: 06/02/2023 6:39 PM Age: 42 years old Clinical indication: Injury or trauma; Fall; Blunt trauma (contusions or hematomas) TECHNIQUE: Imaging protocol: Radiologic exam of the lumbosacral spine. Views: 2 or 3 views. COMPARISON: CR (PELVIS, ) 10/31/2021 12:57 AM FINDINGS: Bones/joints: Normal. No acute fracture. Normal alignment. Soft tissues: Unremarkable. XR/XR lumbar spine 2-3V* [id number] IMPRESSION: No acute findings.
--- NOTE | 2023-06-02 18:24 | XRR_ITS ---
PROCEDURE INFORMATION: Exam: XR Thoracic Spine Exam date and time: 06/02/2023 6:39 PM Age: 42 years old Clinical indication: Injury or trauma; Fall; Blunt trauma (contusions or hematomas) TECHNIQUE: Imaging protocol: Radiologic exam of the thoracic spine. Views: 3 views. COMPARISON: CR XR chest 1V portable [id number] 05/30/2022 8:03 PM FINDINGS: Bones/joints: Normal. No acute fracture. Normal alignment. Soft tissues: Unremarkable. XR/XR thoracic spine 3V* [id number] IMPRESSION: No acute findings.
--- NOTE | 2023-06-02 18:24 | W.ED.FALL ---
HPI - Fall General: Chief Complaint: Fall Stated Complaint: fall, left shoulder injured Time Seen by Provider: 06/02/23 18:10 Source: patient Mode of arrival: ambulatory Limitations: no limitations History of Present Illness: Patient is a 42-year-old female presents to ED today for evaluation following a fall that occurred yesterday after she fell from a ladder at approximately 8 feet. Patient states she injured her left knee, left shoulder, and back. She has been ambulatory on the knee but with difficulty/pain. She denies striking her head or LOC. She denies numbness, tingling, loss of sensation to her lower extremities. No bowel or bladder dysfunction. She is not having any abdominal pain or chest pain or shortness of breath/difficulty breathing. MD complaint: fall Onset (ago): day(s) (yesterday) Fall from: from height (distance) (8 ft) Fall witnessed: yes, by bystander Place fall occurred: home Loss of consciousness: None Prolonged down time: no Symptoms prior to fall: none Context: tripped/slipped Location of injury: back Location of injury - extremities: Left: shoulder and knee Associated symptoms-after fall: Reports no associated symptoms; Denies abdominal pain, chest pain, headache(s), hematuria, lightheadedness or neck pain Review of Systems Eyes: Denies: change in vision, blurry vision, photophobia, eye discharge, floaters or seeing flashes ENMT: Denies: throat pain, odynophagia, ear or mastoid pain, ear discharge, nasal discharge, epistaxis or sinus pain Card: Denies: chest pain, palpitations, lightheadedness, syncope or pre-syncope Resp: Denies: dyspnea or pain on inspiration GI: Denies: abdominal pain : Denies: flank pain or hematuria Musc: Reports: back pain, joint pain (L shoulder, L knee), joint swelling (L knee) and limited range of motion; Denies: neck pain, extremity pain, extremity swelling or joint redness Neuro: Denies: headache(s), numbness in extremities, weakness in extremities, sensory changes or dizziness [facility] ED PFSH: Medical History Acquired scoliosis ADHD (attention deficit hyperactivity disorder), combined type Anxiety about health Asthma Bipolar mood disorder Carpal tunnel syndrome on right Cellulitis of knee, left Dog bite of extremity Elevated liver enzymes Fibromyalgia affecting multiple sites GERD (gastroesophageal reflux disease) Hypertension Insomnia Osteoarthritis involving multiple joints on both sides of body PTSD (post-traumatic stress disorder) Surgical History H/O section H/O laparoscopy x4 for endometriosis-- last 12/2018 no endometriosis was noted; [facility] in [place] H/O LEEP (~2002) severe dysplasia History of appendectomy History of cholecystectomy History of cryosurgery on the cervix due to abnormal paps History of thoracic surgery chest tumor-- benign Postoperative state Family History Grandmother Family history of thyroid problem Maternal grandmother Hypertension Paternal grandmother Maternal grandmother Grandfather Hypertension Paternal grandfather Maternal grandfather Father Hypertension Hyperlipidemia Mother Hypertension Hyperlipidemia Denies family history of Colon cancer Ovarian cancer Diabetes Heart disease Breast cancer Uterine cancer Stroke Social History Substance/Drug Use: former Physical Exam Const: COMMON NORMALS: no acute distress, average body habitus, patient oriented x3, no limitations, healthy appearing, alert and well nourished GENERAL APPEARANCE: cooperative ORIENTATION/CONSCIOUSNESS: Yes awake, Yes oriented to person, Yes oriented to place and Yes oriented to time HENMT: COMMON NORMALS: normocephalic, atraumatic and TM's normal bilaterally HEAD & SCALP: normal to inspection, normocephalic and atraumatic; no Waggoner's sign, no hematoma and no raccoon eyes FACE & SINUS: normal facial exam TYMPANIC MEMBRANE: TM's normal bilaterally MOUTH: other (no intraoral injuries noted) Eye: COMMON NORMALS: Equal, round and reactive pupils present and EOMs intact bilaterally GENERAL EYE: appearance normal, both eyes and all related structures and normal light reflex PUPIL: Yes Equal, round and reactive pupils present DIRECT OPHTHALMOSCOPY: Yes normal light reflex Neck/C-Spine: COMMON NORMALS: full ROM GENERAL: Yes normal visual inspection CERVICAL SPINE: Yes cervical ROM normal, No pain with cervical ROM, No Cervical spine tenderness, No step off deformity and No Paracervical muscle tenderness Chest: COMMONS NORMALS: normal inspection of the chest and normal palpation of entire chest wall Resp: COMMON NORMALS: normal respiratory effort and clear to auscultation bilaterally AUSCULTATION: clear to auscultation bilaterally Cardio: COMMON NORMALS: regular rate and regular rhythm RATE: regular rate RHYTHM: regular rhythm GI: COMMON NORMALS: Normal to inspection, nondistended, normoactive bowel sounds present, Soft to palpation, non-tender, No hepatosplenomegaly present and no masses INSPECTION: Yes normal to inspection and No abdominal wall ecchymosis AUSCULTATION: Yes normoactive bowel sounds PALPATION: Yes Soft to palpation and Yes No hepatosplenomegaly present Back/Pelvis: COMMON NORMALS: thoraco-lumbar ROM normal THORACIC SPINE/UPPER BACK: Yes thoracic ROM normal, Yes thoracic spinal tenderness (mid/upper T spine) and No paraspinal muscle tenderness LUMBAR SPINE/LOWER BACK: Yes pain with ROM, Yes lumbar spinal tenderness (lower lumbar), Yes straight leg raise negative bilaterally and Yes other soft tissue findings (small amount of swelling/ecchymosis lower back) PELVIS: Yes buttocks normal SACROILIAC JOINTS: Yes SI joints normal SACRUM: no tenderness COCCYX: no tenderness Extremity: COMMON NORMALS: normal to inspection, capillary refill normal, no calf tenderness and no pedal edema GENERAL: Yes normal exam except as noted LEFT UPPER EXTREMITY: Yes shoulder joint Left shoulder joint: Yes ROM (significantly limited ROM secondary to pain) and Yes neurovascular exam (normal) LEFT LOWER EXTREMITY: Yes knee joint Left knee: Yes inspection (swollen knee joint), Yes ROM (can flex/ext knee fairly well; somewhat limited due to swelling), Yes neurovascular exam (normal) and Yes other (can bear partial weight on extremity ) Neuro: RHYS COMA SCALE: document GCS findings Rhys coma scale eye opening: Spontaneous [place] coma scale verbal response: Orientated Rhys coma scale motor response: Obey commands Rhys coma scale total score: 15 COMMON NORMALS: patient oriented x3, CN's II-XII intact bilaterally, moves all extremities, no focal motor deficits, no sensory deficits noted and gait normal SENSORIUM/ORIENTATION: Yes alert, Yes oriented to person, Yes oriented to place and Yes oriented to time SPEECH: speech normal GAIT: Yes Normal gait present Skin: COMMON NORMALS: no rashes or lesions noted GENERAL SKIN EXAM: no rashes or lesions noted TRAUMA: no lacerations or abrasions Course Vital Signs: Vital signs: Vital Signs Temperature 98.0 F 06/02/23 20:04 Pulse Rate 95 06/02/23 20:04 Respiratory Rate 18 06/02/23 20:04 Blood Pressure 167/102 06/02/23 20:04 Pulse Oximetry 97 06/02/23 20:04 Oxygen Delivery Me thod Room Air 06/02/23 17:57 MDM - Fall Medical Decision Making XRs negative. Patient follow-up with her primary care provider later this week for re-evaluation. Strict return ED precautions given. Lab Data Radiology Impressions Shoulder X-Ray 06/02/23 17:29 IMPRESSION: No acute findings. Knee X-Ray 06/02/23 18:24 IMPRESSION: No acute findings. Lumbar Spine X-Ray 06/02/23 18:24 IMPRESSION: No acute findings. Thoracic Spine X-Ray 06/02/23 18:24 IMPRESSION: No acute findings. Scapula X-Ray 06/02/23 18:30 IMPRESSION: No acute findings. All radiology interpretation(s) finalized by discharge Discharge Plan Discharge Patient Disposition: Home Clinical Impression: Fall from ladder Qualifiers: Encounter type: initial encounter Qualified Code(s): W11.XXXA - Fall on and from ladder, initial encounter Injury of left shoulder Qualifiers: Encounter type: initial encounter Qualified Code(s): S49.92XA - Unspecified injury of left shoulder and upper arm, initial encounter Contusion of lower back Qualifiers: Encounter type: initial encounter Qualified Code(s): S30.0XXA - Contusion of lower back and pelvis, initial encounter Injury of left knee Qualifiers: Encounter type: initial encounter Qualified Code(s): S89.92XA - Unspecified injury of left lower leg, initial encounter Condition: Stable Prescriptions: New ibuprofen 800 mg tablet 800 mg PO Q8H PRN (Reason: pain) Qty: 20 0RF hydrocodone-acetaminophen 5-325 mg tablet 1 tab PO Q6H PRN (Reason: pain) Qty: 14 0RF No Action prenat.vits,abilio,coz-jnst-awffe Tablet 1 tab PO DAILY prednisone 20 mg tablet 60 mg PO DAILY 5 Days Qty: 15 0RF azithromycin [Zithromax] 500 mg tablet 500 mg PO DAILY 5 Days Qty: 5 0RF levofloxacin 750 mg tablet 750 mg PO DAILY Qty: 10 0RF gabapentin 300 mg capsule 600 mg PO TID Qty: 180 1RF sertraline 100 mg tablet 100 mg PO BID Qty: 60 3RF lidocaine 5 % ointment 1 applic topical DAILY PRN (Reason: wound dressing change) Qty: 35.44 0RF buspirone 7.5 mg tablet 7.5 mg PO BID Qty: 60 3RF albuterol sulfate 90 mcg/actuation HFA aerosol inhaler 2 puff inhalation Q6H PRN (Reason: shortness of breath or wheezing) Qty: 8.5 1RF atenolol 50 mg tablet 50 mg PO DAILY Qty: 30 5RF Discharge Orders: Discharge ED (Routine); Ordered 06/02/23 Ordered By: Blank Sánchez Referrals: Du Coffey MD [Primary Care Provider] - Patient Instructions: Opioid Safety, Pain Management, RICE Therapy Activity Restrictions/Additional Instructions: As we discussed please follow-up with primary care later this week for reevaluation. You may return to the emergency department for any worsening or severe/uncontrollable pain, numbness, tingling, weakness to your extremities or any color/temperature changes, bowel/bladder incontinence/retention, any severe abdominal or back pain, or any other concerns you may have. I hope you begin to feel better soon. Coding Level of Care Code ED Balling Machine Operator for Erickson Casas
--- NOTE | 2023-06-02 18:30 | XRR_ITS ---
PROCEDURE INFORMATION: Exam: XR Left Scapula Exam date and time: 06/02/2023 6:51 PM Age: 42 years old Clinical indication: Injury or trauma; Fall; Blunt trauma (contusions or hematomas); Shoulder; Left; Additional info: 8 ft fall; Questionable FX on shoulder XR TECHNIQUE: Imaging protocol: Radiologic exam of the left scapula. Complete exam. COMPARISON: CR XR chest 1V portable [id number] 05/30/2022 8:03 PM FINDINGS: Bones/joints: No evidence of scapular fracture. Soft tissues: Normal. XR/[place] [id number] IMPRESSION: No acute findings.
[2023-06-02] MEDS: acetaminophen 500 mg Tablet 1000 MG PO (19:33)
[2023-06-02] MEDS: HYDROcodone-acetaminophen 5-325 mg Tablet 2 TAB PO (19:59)
[2023-06-02 20:04] VITALS: BP 167/102; PULSE 95; RESP 18; TEMP 36.7; O2SAT 97
== END 2023-06-02 20:18 | disposition home or self-care (01) ==
PROVIDERS: Emergency Provider Physician Assistant; PCP Family Medicine Adult Medicine
DX: S30.0XXA Contusion of lower back and pelvis, initial encounter (principal); S89.92XA Unspecified injury of left lower leg, initial encounter; S49.92XA Unspecified injury of left shoulder and upper arm, initial encounter; W11.XXXA Fall on and from ladder, initial encounter; I10 Essential (primary) hypertension
CPT/HCPCS: 72072; 72100; 73010; 73030; 73562; 99284

== ENCOUNTER → 2023-06-17 12:31 | Outpatient (BNVA) | payer BC, MEDICAID, SELFPAY | PROVIDERS: PCP Family Medicine Adult Medicine; Visit Provider Nurse Practitioner | DX: M25.562 Pain in left knee; M25.462 Effusion, left knee | CPT/HCPCS: 73562 ==

== ENCOUNTER → 2023-07-28 09:59 | Outpatient (BNVA) | payer BC, MEDICAID, SELFPAY | PROVIDERS: PCP Family Medicine Adult Medicine; Visit Provider Physician Assistant | DX: M25.511 Pain in right shoulder (principal); M25.512 Pain in left shoulder; M75.42 Impingement syndrome of left shoulder | CPT/HCPCS: 73030 ==

== ENCOUNTER 2024-02-13 21:59 | Emergency (ER) | payer BC, MEDICAID, SELFPAY ==
[2024-02-13 22:02] VITALS: BP 144/92; PULSE 91; RESP 16; TEMP 36.4; O2SAT 97; BMI 26.5
--- NOTE | 2024-02-13 22:12 | XRR_ITS ---
PROCEDURE INFORMATION: Exam: XR Left Elbow Exam date and time: 02/13/2024 10:36 PM Age: 43 years old Clinical indication: Injury or trauma; Patient HX: Lt elbow/rt hand pain post fall TECHNIQUE: Imaging protocol: Radiologic exam of the left elbow. Views: 3 or more views. COMPARISON: CR XR hand LT min 3V* [id number] 10/27/2022 3:02 PM FINDINGS: Bones/joints: Normal. Soft tissues: Normal. XR/XR elbow LT min 3V* [id number] IMPRESSION: No acute findings.
--- NOTE | 2024-02-13 22:28 | XRR_ITS ---
PROCEDURE INFORMATION: Exam: XR Right Hand Exam date and time: 02/13/2024 10:36 PM Age: 43 years old Clinical indication: Injury or trauma; Patient HX: Lt elbow/rt hand pain post fall TECHNIQUE: Imaging protocol: Radiologic exam of the right hand. Views: 3 or more views. COMPARISON: CR XR hand RT min 3V* [id number] 12/24/2021 11:16 AM FINDINGS: Bones/joints: There is no evidence of acute fracture or dislocation. There is small accessory ossicle or old ununited fracture of the ulnar styloid not significantly changed. Soft tissues: Normal. XR/XR hand RT min 3V* [id number] IMPRESSION: No acute finding.
[2024-02-13] MEDS: ketorolac 60 mg/2 mL INJ IM (22:47)
[2024-02-13 23:45] VITALS: BP 116/73; PULSE 89; RESP 18; TEMP 36.8; O2SAT 99
[2024-02-13 23:48] VITALS: BP 116/73; PULSE 89; RESP 18; TEMP 36.8; O2SAT 99
--- NOTE | 2024-02-14 00:20 | W.ED.EXTPRO ---
HPI - Extremity Problem General: Chief complaint: Extremity Injury, Upper Stated complaint: fall left arm injured Time Seen by Provider: 02/13/24 22:19 Source: patient Mode of arrival: ambulatory Limitations: no limitations History of Present Illness: Patient is a 43-year-old female presenting to the emergency department complaining of fall tonight. Patient states she was walking along a [place] and tripped, hitting her left elbow on a rock and jamming her right middle finger. No obvious deformity on initial examination. No prior injuries to either these affected areas. There is no open wounds or active bleeding at this time. Patient does note limited range of motion of both the left arm at the elbow, as well as making a fist due to her right middle finger pain. No other symptoms reported at this time and patient has not taken anything for pain. She did not hit her head or pass out with the fall. No prolonged downtime. MD Complaint: extremity pain and joint pain Location: left (Elbow) and right (Middle finger) Exacerbating factors: range of motion Associated symptoms: Reports no associated symptoms; Deny chest pain, fever(s) or rash Review of Systems General: Reports: 10 or more systems reviewed and unremarkable except in HPI and below Const: Reports: other (Fall); Denies: fever(s), chills or fatigue Eyes: Denies: change in vision ENMT: Denies: throat pain, ear or mastoid pain or nasal discharge Card: Denies: chest pain, palpitations, swelling of feet/ankles or lightheadedness Resp: Denies: dyspnea, productive cough or wheezing GI: Denies: abdominal pain, nausea, vomiting, diarrhea or constipation : Denies: flank pain, difficulty voiding, dysuria or urinary frequency Musc: Reports: extremity pain, joint pain and limited range of motion; Denies: neck pain or back pain Skin/Breast: Denies: rash Neuro: Denies: headache(s), numbness in extremities or weakness in extremities PFSH ED PFSH: Medical History Pain and swelling of left knee Bilateral shoulder injury Weight gain due to medication Cellulitis of knee, left Asthma Osteoarthritis involving multiple joints on both sides of body [facility], no show 07/09/23 Anxiety about health Dog bite of extremity PTSD (post-traumatic stress disorder) Carpal tunnel syndrome on right GERD (gastroesophageal reflux disease) Elevated liver enzymes Fibromyalgia affecting multiple sites Bipolar mood disorder Hypertension Acquired scoliosis Insomnia ADHD (attention deficit hyperactivity disorder), combined type Surgical History Postoperative state History of cryosurgery on the cervix due to abnormal paps H/O LEEP (~2002) severe dysplasia History of appendectomy History of cholecystectomy H/O laparoscopy x4 for endometriosis-- last 12/2018 no endometriosis was noted; [facility] in [place] H/O section History of thoracic surgery chest tumor-- benign Family History Grandmother Family history of thyroid problem Maternal grandmother Hypertension Paternal grandmother Maternal grandmother Grandfather Hypertension Paternal grandfather Maternal grandfather Father Hypertension Hyperlipidemia Mother Hypertension Hyperlipidemia Denies family history of Colon cancer Ovarian cancer Diabetes Heart disease Breast cancer Uterine cancer Stroke Social History Substance/Drug Use: former Physical Exam Const: COMMON NORMALS: no acute distress, average body habitus, patient oriented x3, no limitations, healthy appearing, alert and well nourished HENMT: COMMON NORMALS: normocephalic and atraumatic HEAD & SCALP: normocephalic and atraumatic Eye: COMMON NORMALS: EOMs intact bilaterally and conjunctivae normal CONJUNCTIVA: Yes conjunctivae normal Neck/C-Spine: COMMON NORMALS: full ROM Resp: COMMON NORMALS: normal respiratory effort, No use of accessory muscles and clear to auscultation bilaterally AUSCULTATION: clear to auscultation bilaterally Cardio: COMMON NORMALS: regular rate and regular rhythm RATE: regular rate RHYTHM: regular rhythm Extremity: NARRATIVE EXTREMITY EXAM: Very mild swelling noted to the left olecranon. Somewhat limited range of motion due to the pain. There is no obvious deformity or joint effusion. There is pain with range of motion of the right middle finger, worse with flexion. No obvious deformity or fractures. No open wounds. Distal neurovascular exam is intact. Neuro: COMMON NORMALS: patient oriented x3, moves all extremities, no focal motor deficits and no sensory deficits noted SENSORIUM/ORIENTATION: Yes alert Skin: COMMON NORMALS: no rashes or lesions noted GENERAL SKIN EXAM: no rashes or lesions noted Course Vital Signs: Vital signs: Vital Signs Temperature 98.3 F 02/13/24 23:48 Pulse Rate 89 02/13/24 23:48 Respiratory Rate 18 02/13/24 23:48 Blood Pressure 116/73 02/13/24 23:48 Pulse Oximetry 99 02/13/24 23:48 Oxygen Delivery Me thod Room Air 02/13/24 23:45 MDM - Extremity (Nontraumatic) Medical Decision Making Patient presented for fall and associated injury to the left elbow and right middle finger. This did occur just prior to arrival. Her vitals were normal. Physical examination ultimately did not reveal any fractures or signs of trauma. Her x-rays were both negative for any acute findings. Informed her that she needs to treat conservatively with RICE therapy and ibuprofen and Tylenol. Likely she has contusion of the left elbow and sprain of the right middle finger. Reasons to return discussed and she will follow-up with primary care as needed. Lab Data Radiology Impressions Elbow X-Ray 02/13/24 22:12 IMPRESSION: No acute findings. Hand X-Ray 02/13/24 22:28 IMPRESSION: No acute finding. All radiology interpretation(s) finalized by discharge Discharge Plan Discharge Patient Disposition: Home Clinical Impression: Contusion of elbow, left, Contusion of right middle finger Condition: Stable Prescriptions: No Action fluticasone propionate [Flonase Allergy Relief] 50 mcg/actuation spray,suspension 1 spray intranasal BID PRN (Reason: nasal congestion) Qty: 16 0RF Rx Instructions: administer into each nostril sertraline 100 mg tablet 100 mg PO BID Qty: 60 3RF lidocaine 5 % ointment 1 applic topical DAILY PRN (Reason: wound dressing change) Qty: 35.44 0RF buspirone 7.5 mg tablet 7.5 mg PO BID Qty: 60 3RF albuterol sulfate 90 mcg/actuation HFA aerosol inhaler 2 puff inhalation Q6H PRN (Reason: shortness of breath or wheezing) Qty: 8.5 1RF bupropion HCl 200 mg tablet sustained-release 12 hr 200 mg PO QAM Qty: 30 3RF tramadol 50 mg tablet 50 mg PO Q6H PRN (Reason: pain) 30 Days Qty: 60 1RF celecoxib 400 mg capsule 400 mg PO DAILY PRN (Reason: pain) Qty: 30 1RF atenolol 50 mg tablet 50 mg PO DAILY Qty: 30 5RF gabapentin 300 mg capsule 600 mg PO TID Qty: 180 1RF Discharge Orders: Discharge ED (Routine); Ordered 02/13/24 Ordered By: Gildardo Haines Referrals: Du Coffey MD [Primary Care Provider] - Discharge Diet: Usual diet Discharge Activity: Increase activity as tolerated Patient Instructions: Contusion in Adults (ED) Activity Restrictions/Additional Instructions: Rest, ice, compression, and elevation of affected joints. Gentle range of motion exercises as tolerated. Please take Tylenol or ibuprofen at home. Return with any new or worsening and follow-up with primary care. Coding Level of Care Code ED Pulping Machine Operator for Erickson Casas
== END 2024-02-13 23:46 | disposition home or self-care (01) ==
PROVIDERS: Emergency Provider Physician Assistant; PCP Family Medicine Adult Medicine
DX: S50.02XA Contusion of left elbow, initial encounter (principal); S60.031A Contusion of right middle finger without damage to nail, initial encounter; I10 Essential (primary) hypertension; W01.198A Fall on same level from slipping, tripping and stumbling with subsequent striking against other object, initial encounter
CPT/HCPCS: 73080; 73130; 96372; 99284; J1885

== ENCOUNTER 2025-06-17 22:30 | Emergency (ER) | payer MEDICAID, SELFPAY ==
[2025-06-17 22:44] VITALS: BP 135/72; PULSE 85; RESP 14; TEMP 36.8; O2SAT 99; BMI 31.1
--- NOTE | 2025-06-17 22:52 | XRR_ITS ---
PROCEDURE INFORMATION: Exam: XR Right Wrist Exam date and time: 06/17/2025 11:05 PM Age: 44 years old Clinical indication: Injury or trauma; Blunt trauma (contusions or hematomas); Right; Fall with RT wrist pain. History of fracture as a child per patient. ; Additional info: Pain, injury TECHNIQUE: Imaging protocol: Radiologic exam of the right wrist. Views: 3 or more views. COMPARISON: CR XR hand RT min 3V* 30000 12/24/2021 11:16 AM FINDINGS: Bones/joints: Mild osseous demineralization. Mild widening of the scapholunate interval. Chronic ulnar styloid fracture or non fusion. No evidence of acute fracture or dislocation. Soft tissues: Mild soft tissue swelling. XR/XR wrist RT min 3V* [id number] IMPRESSION: 1. No evidence of acute fracture or dislocation. 2. Mild widening of the scapholunate interval.
[2025-06-17 23:02] VITALS: BP 131/95; PULSE 98; O2SAT 100
--- NOTE | 2025-06-17 23:18 | ED_ITS ---
HPI - Extremity Problem General: Chief complaint: Extremity Injury, Upper Stated complaint: right wrist/hand pain Time Seen by Provider: 06/17/25 22:49 History of Present Illness: Patient is 44-year-old female with history of anxiety presented to the ED after a [place]. Patient states she was disoriented by the lights, and fell with her right hand outstretched. She complains of a wound to her right MTP, and right wrist pain. She has a previous right ulnar fracture from when she was a child. This occurred just prior to arrival. Associated symptoms: Deny chest pain, fever(s) or rash Related Data Previous Rx's ?Medication ?Instructions ?Recorded sertraline 100 mg tablet 100 mg PO BID mental health #60 12/11/22 tabs albuterol sulfate 90 mcg/actuation 2 puff inhalation Q 6H PRN 05/07/23 aerosol inhaler shortness of breath or wheez ing #8.5 grams buspirone 7.5 mg tablet 7.5 mg PO BID anxiety #60 ta bs 05/07/23 bupropion HCl 200 mg tablet,12 hr [facility] 06/12/23 sustained-release tabs fluticasone propionate 50 1 spray intranasal BID PRN n edita 10/22/23 mcg/actuation nasal congestion #16 grams spray,suspension (Flonase Allergy Relief) gabapentin 300 mg capsule 600 mg (2 x 300 mg) PO TID # 180 10/13/24 caps progesterone micronized 100 mg 100 mg PO BEDTIME #90 c aps 11/17/24 capsule erahexeg-vrzgywikm-kdxjdktj 3.5 2 drp ophthalmic (eye) Q8H swimmer 04/27/25 mg/mL-10,000 unit/mL-0.1% eye drops ear #5 mL estradiol 0.025 mg/24 hr weekly See Rx Instructions .R oute 06/12/25 transdermal patch .COMPLEX #4 patches Allergies Allergy/AdvReac Type Severity Reaction Status Date / Time No Known Allergies Allergy Verified 06/17/25 22:46 Review of Systems Const: Denies: fever(s), chills, body aches, change in appetite, change in weight, fatigue or malaise Eyes: Denies: eye discomfort, eye discharge or eye redness ENMT: Denies: throat pain, odynophagia, ear discharge, nasal discharge, nasal congestion, post nasal drip or sinus pain Card: Denies: chest pain, palpitations, irregular heart rhythm, edema or swelling of feet/ankles Resp: Denies: dyspnea, productive cough, non-productive cough, wheezing, pain on inspiration or chest congestion GI: Denies: abdominal pain, nausea, vomiting, diarrhea, constipation or change in bowel habits Musc: Reports: extremity pain, joint pain, joint stiffness and limited range of motion; Denies: neck pain, back pain or joint swelling Skin/Breast: Denies: rash, pruritus, erythema or sores Neuro: Denies: headache(s), numbness in extremities, weakness in extremities, sensory changes, lack of coordination or dizziness Psych: Denies: anxiety or depression PFSH ED PFSH: Medical History (Updated 06/17/25 @ 23:20 by TOVA Bates) Bilateral temporomandibular joint pain Sprain and strain of right wrist Pain and swelling of left knee Bilateral shoulder injury Weight gain due to medication Cellulitis of knee, left Asthma Osteoarthritis involving multiple joints on both sides of body [facility], no show 07/09/23 Anxiety about health Dog bite of extremity PTSD (post-traumatic stress disorder) Carpal tunnel syndrome on right GERD (gastroesophageal reflux disease) Elevated liver enzymes Fibromyalgia affecting multiple sites Bipolar mood disorder Hypertension Acquired scoliosis Insomnia ADHD (attention deficit hyperactivity disorder), combined type Surgical History Postoperative state History of cryosurgery on the cervix due to abnormal paps H/O LEEP (~2002) severe dysplasia History of appendectomy History of cholecystectomy H/O laparoscopy x4 for endometriosis-- last 12/2018 no endometriosis was noted; [facility] in [place] H/O section History of thoracic surgery chest tumor-- benign Family History Grandmother Family history of thyroid problem Maternal grandmother Hypertension Paternal grandmother Maternal grandmother Grandfather Hypertension Paternal grandfather Maternal grandfather Father Hypertension Hyperlipidemia Mother Hypertension Hyperlipidemia Denies family history of Colon cancer Ovarian cancer Diabetes Heart disease Breast cancer Uterine cancer Stroke Social History Smoking and tobacco/nicotine status: current every day tobacco/nicotine user Substance/Drug Use: former Physical Exam Const: COMMON NORMALS: no acute distress, average body habitus, patient oriented x3, no limitations, healthy appearing, alert and well nourished EXAM LIMITATIONS: no altered mental status GENERAL APPEARANCE: cooperative, comfortable, well kempt, well developed and well hydrated; not in distress, not ill appearing and not frail appearing ORIENTATION/CONSCIOUSNESS: Yes awake, Yes oriented to person, Yes oriented to place and Yes oriented to time; not confused HENMT: COMMON NORMALS: normocephalic, atraumatic, hearing grossly normal bilaterally, external ears normal, Normal external nose present and moist oral mucous membranes HEAD & SCALP: normal to inspection, normocephalic and atraumatic FACE & SINUS: normal facial exam and face symmetric; no sinus tenderness NOSE: Normal external nose present EXTERNAL EAR: Yes external ears normal EXTERNAL AUDITORY CANAL: Abnormal EAC present EAC lat erality: bilateral erythema, edema and EAC tenderness; no otic discharge THROAT: posterior oropharynx normal Neck/C-Spine: COMMON NORMALS: full ROM, no lymphadenopathy and supple Lymph: LYMPHATIC: no lymphadenopathy noted Chest: COMMONS NORMALS: normal inspection of the chest and normal palpation of entire chest wall Resp: COMMON NORMALS: normal respiratory effort EFFORT & INSPECTION: Yes able to speak in complete sentences, Yes symmetric chest movement, No abnormal respiratory pattern, No tachypneic, No respiratory distress and No Actively coughing Cardio: COMMON NORMALS: regular rate and regular rhythm PALPATION: normal PMI RATE: regular rate RHYTHM: regular rhythm GI: COMMON NORMALS: Normal to inspection, nondistended, normoactive bowel sounds present, Soft to palpation and non-tender PALPATION: Yes Soft to palpation : COMMON NORMALS: Yes no CVA tenderness BLADDER/KIDNEY EXAM: Yes no CVA tenderness Back/Pelvis: COMMON NORMALS: no CVA tenderness Extremity: NARRATIVE EXTREMITY EXAM: Right wrist tenderness along fifth digit Neuro: COMMON NORMALS: patient oriented x3 SENSORIUM/ORIENTATION: Yes alert, Yes oriented to person, Yes oriented to place and Yes oriented to time CRANIAL NERVES: Yes CN normal except as noted GAIT: Yes Normal gait present MOTOR EXAM: 5/5 motor strength present throughout and Normal motor muscle tone present throughout Psych: COMMON NORMALS: Normal thought process present and speech normal APPEARANCE: Yes grossly normal and Yes well kempt ATTITUDE: Yes calm and Yes engaged ACTIVITY/MOTOR BEHAVIOR: Yes appropriate eye contact SPEECH: Yes normal speech MOOD & AFFECT: Yes euthymic mood THOUGHT PROCESS: Normal thought process present THOUGHT CONTENT: Yes Normal thought content present ATTENTION/CONCENTRATION: Yes attention grossly intact MEMORY/COGNITION: Yes memory grossly intact INSIGHT: Good insight present (Psych) JUDGEMENT: Good judgement present (Psych) Skin: COMMON NORMALS: no rashes or lesions noted and turgor normal GENERAL SKIN EXAM: no rashes or lesions noted, elasticity normal, turgor normal and no erythema Course Vital Signs: Vital signs: Vital Signs Temperature 98.2 F 06/17/25 22:44 Pulse Rate 98 06/17/25 23:47 Respiratory Rate 14 06/17/25 22:44 Blood Pressure 161/94 06/17/25 23:47 Pulse Oximetry 95 06/17/25 23:47 Oxygen Delivery Me thod Room Air 06/17/25 22:44 MDM - Extremity (Nontraumatic) Medical Decision Making Patient is a pleasant 44-year-old female that fell just prior to arrival. She has a contusion on her right ulnar side, and a skin opening skin tear to her palmar proximal right fifth digit. She does not appear to have a fracture. She does have some tenderness however. I have advised wound care, and commercial splint, and follow-up with Dr. Palmer. Medical Records I reviewed the patient's medical records. XR interpretation done by ED provider, pending radiology final review Discharge Plan Discharge Patient Disposition: Home Clinical Impression: Right wrist sprain Condition: Stable Prescriptions: No Action fluticasone propionate [Flonase Allergy Relief] 50 mcg/actuation spray,suspe nsion 1 spray intranasal BID PRN (Reason: nasal congestion) Qty: 16 0RF Rx Instructions: administer into each nostril sertraline 100 mg tablet 100 mg PO BID Qty: 60 3RF buspirone 7.5 mg tablet 7.5 mg PO BID Qty: 60 3RF albuterol sulfate 90 mcg/actuation HFA aerosol inhaler 2 puff inhalation Q6H PRN (Reason: shortness of breath or wheezing) Qty: 8.5 1RF bupropion HCl 200 mg tablet sustained-release 12 hr 200 mg PO QAM Qty: 30 3RF neomycin-polymyxin B-dexameth 3.5mg/mL-10,000 unit/mL-0.1 % drops,suspension 2 drp ophthalmic (eye) Q8H Qty: 5 0RF Rx Instructions: for use in ears, three times daily gabapentin 300 mg capsule 600 mg PO TID Qty: 180 0RF progesterone micronized 100 mg capsule 100 mg PO BEDTIME Qty: 90 0RF Rx Instructions: take once nightly at bedtime estradiol 0.025 mg/24 hr patch weekly See Rx Instructions .ROUTE .COMPLEX Qty: 4 2RF Dose Instruction: APPLY 1 PATCH TOPICALLY TO SKIN ONCE A WEEK Rx Instructions: APPLY 1 PATCH TOPICALLY TO SKIN ONCE A WEEK Discharge Orders: Discharge ED (Routine); Ordered 06/17/25 Ordered By: Ruth Curiel Referrals: Du Coffey MD [Primary Care Provider, Family Practice] Lizz Martinez MD [Physician, Orthopedics] - 7-10 days Clinical Impression: Right wrist sprain Discharge Diet: Usual diet Discharge Activity: Limit activity as instructed Patient Instructions: Wrist Sprain (ED), Patient Portal & Bianca Instructions Activity Restrictions/Additional Instructions: - Wear your wrist splint at all times except to shower. - Tylenol and ibuprofen for pain -Ice to your wrist. This will help with the pain. -Wound care for your fifth finger: Add the antibiotic ointment, Vaseline gauze, nonadherent dressing, and cover. Make sure this is washed on a daily basis prior to your wound care. Make sure this is checked on a daily basis. -Return to ED if you have worsening redness, drainage in this area, fever greater 100.4 ?F - Referral to orthopedics has been made. Follow-up in 1 week for repeat x-rays and further decision making if needed. Thank you for choosing [facility] for your healthcare needs today. You have been screened and evaluated and felt safe for discharge. Health conditions do change or evolve sometimes and as such it is important that you follow up with your Primary Doctor to be re checked, 3-5 days is a general good time frame for follow up. You are always welcome to return to the ED for re assessment if your symptoms are worsening or you have new concerns Print Language: French Coding Level of Care Code ED [employer] Operations Staff Officer for Erickson Casas
[2025-06-17] MEDS: mupirocin oint 22 gm 1 APPLIC TOPICAL (23:40)
[2025-06-17 23:47] VITALS: BP 161/94; PULSE 98; O2SAT 95
== END 2025-06-17 23:49 | disposition home or self-care (01) ==
PROVIDERS: Emergency Provider Physician Assistant; PCP Family Medicine Adult Medicine
DX: S63.501A Unspecified sprain of right wrist, initial encounter (principal); W19.XXXA Unspecified fall, initial encounter
CPT/HCPCS: 73110; 99283; J9999

== ENCOUNTER → 2025-06-26 14:07 | Outpatient (BNVA) | payer MEDICAID, SELFPAY | PROVIDERS: PCP Family Medicine Adult Medicine; Visit Provider Nurse Practitioner | DX: S63.501A Unspecified sprain of right wrist, initial encounter (principal); S66.911A Strain of unspecified muscle, fascia and tendon at wrist and hand level, right hand, initial encounter; W19.XXXA Unspecified fall, initial encounter | CPT/HCPCS: 73130 ==

== ENCOUNTER 2025-07-05 15:41 | Outpatient (CLI) | payer MEDICAID, SELFPAY ==
--- NOTE | 2025-07-05 16:00 | MRR_ITS ---
PROCEDURE INFORMATION: Exam: MR Right Upper Extremity Joint Without Contrast; Wrist Exam date and time: 07/05/2025 3:58 PM Age: 44 years old Clinical indication: Injury or trauma; Blunt trauma (contusions or hematomas); Right; Injury details: Persistent pain S/P fall 3 weeks ago. Pain on ulna side fo wrist into 5th digit. Poss. Tfcc injury; Additional info: S63.501a - unspecified sprain of right wrist, initial enc. . . , Possible tfcc tear TECHNIQUE: Imaging protocol: Magnetic resonance imaging of the right upper extremity without contrast. Exam focused on the wrist. COMPARISON: CR (UP EXM, ) 06/17/2025 11:05 PM FINDINGS: Bones/joints: There is reactive marrow edema within the base of the 5th metatarsal. A nondisplaced oblique intra-articular fracture plane is seen within base of the 5th metatarsal. There is no significant articular surface step-off at the articulation with the hamate appreciated on the MR. There is no other area of definitive acute reactive marrow edema. There is an old ulnar styloid fracture without union. There is mild degenerative osteophytosis at the base of the thumb/1st carpometacarpal articulation. Scapholunate ligament: There is widening of the scapholunate interval with complete tear of the scapholunate ligament. This is age-indeterminate. There is no significant edema in this region suggesting this is likely chronic. Lunotriquetral ligament: Unremarkable. No tear. Triangular fibrocartilage complex: Unremarkable. No tear. Flexor compartment tendons: Unremarkable. No tear. Extensor compartment tendons: Unremarkable. No tear. Soft tissues: There is subtle blooming artifact at the cutaneous margin of the wrist dorsal to the distal cortex of the radius and extensor digitorum tendons. No definitive metallic density is appreciated on the recent radiograph. MR/MR wrist RT wo con* [id number] IMPRESSION: 1. Oblique intra-articular fracture of the base of the 5th metacarpal. 2. 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 3. Chronic ulnar styloid fracture without union.
== END 2025-07-05 15:42 | disposition home or self-care (01) ==
LOC: RAD 15:42
PROVIDERS: PCP Family Medicine Adult Medicine; Visit Provider Nurse Practitioner
DX: S63.501A Unspecified sprain of right wrist, initial encounter (principal); S66.911A Strain of unspecified muscle, fascia and tendon at wrist and hand level, right hand, initial encounter; X58.XXXA Exposure to other specified factors, initial encounter
CPT/HCPCS: 73221

== ENCOUNTER 2025-07-07 10:45 | Outpatient (CLI) | payer MEDICAID, SELFPAY | END 2025-07-07 10:46 | disposition home or self-care (01) | LOC: SPT 10:46 | PROVIDERS: PCP Family Medicine Adult Medicine; Visit Provider Nurse Practitioner | DX: Z46.89 Encounter for fitting and adjustment of other specified devices (principal); S63.501D Unspecified sprain of right wrist, subsequent encounter; S66.911D Strain of unspecified muscle, fascia and tendon at wrist and hand level, right hand, subsequent encounter; X58.XXXD Exposure to other specified factors, subsequent encounter | CPT/HCPCS: L3984 ==

== ENCOUNTER → 2025-08-07 08:20 | Outpatient (BNVA) | payer MEDICAID, SELFPAY | PROVIDERS: PCP Family Medicine Adult Medicine; Visit Provider Nurse Practitioner | DX: S62.346D Nondisplaced fracture of base of fifth metacarpal bone, right hand, subsequent encounter for fracture with routine healing (principal); S63.501A Unspecified sprain of right wrist, initial encounter; S66.911A Strain of unspecified muscle, fascia and tendon at wrist and hand level, right hand, initial encounter; X58.XXXD Exposure to other specified factors, subsequent encounter; X58.XXXA Exposure to other specified factors, initial encounter | CPT/HCPCS: 73130 ==